=== PATIENT | female | born 1960 | race Caucasian/White ===

== ENCOUNTER 2020-10-17 08:04 | Outpatient (REF) | payer OTHER, SELFPAY ==
[2020-10-17 08:56] LABS: MANUAL DIFF FLAG NO
[2020-10-17 09:09] LABS: Basophils Percent Auto 0.6 % (0-2); Eosinophils Absolute Auto 0.2 X10*3/uL (0.0-0.4); Eosinophils Percent Auto 2.6 % (0-4); Hematocrit 43.5 % (37-47); Hemoglobin 14.1 g/dl (12.0-16.0); Imm Gran Abs Auto 0.03 X10*3/uL (0.00-0.03); Imm Gran Pct Auto 0.4 % (0.0-0.4); Lymphocytes Percent Auto 28.2 % (20-40); Mean Corpuscular HGB Conc 32.4 g/dl (31.0-35.0); Mean Corpuscular Hemoglobin 28.8 pg (27.0-33.0); Mean Corpuscular Volume 88.8 fL (80-98); Monocytes Absolute Auto 0.6 X10*3/uL (0.1-1.2); Monocytes Percent Auto 7.8 % (2-11); Neutrophils Absolute Auto 4.2 X10*3/uL (2.0-8.3); Neutrophils Percent Auto 60.4 % (45-73); Platelet Count 226 X10*3/uL (160-400); Red Cell Distribution Width 13.1 % (11.0-16.0)
[2020-10-17 09:24] LABS: Alanine Aminotransferase 20 U/L (0-31); Albumin Level 4.3 g/dL (3.5-5.0); Alkaline Phosphatase 99 U/L (39-117); Anion Gap 12 (12-20); Aspartate Amino Transferase 19 U/L (5-31); Bilirubin Total 0.6 mg/dL (0.0-1.0); Blood Urea Nitrogen 18 mg/dL (9-16); Calcium 8.8 mg/dL (8.4-10.2); Carbon Dioxide 28 mmol/L (22-29); Chloride 105 mmol/L (96-108); Cholesterol 221 mg/dL; Estimated Glomerular Filt Rate > 60; Glucose Random 92 mg/dL (60-115); HDL Cholesterol 42 mg/dL; LDL Cholesterol Calculated 152 mg/dl; Potassium 4.9 mmol/L (3.3-5.1); Sodium 140 mmol/L (135-145); Total Protein 7.1 g/dL (6.5-8.0); Triglycerides 135 mg/dL
[2020-10-17 09:48] LABS: Free T4 (Free Thyroxine) 0.95 ng/dL (0.71-1.85); Thyroid Stimulating Hormone 2.24 uIU/mL (0.32-4.0); Vitamin D 25-OH Total 37.9 ng/mL (>30)
[2020-10-17 10:04] LABS: Folate 5.5 ng/mL (> or = 4.0); Vitamin B12 694 pg/mL (200-900)
== END 2020-10-17 08:05 | disposition home or self-care (01) ==
LOC: HO.LAB 08:04
PROVIDERS: PCP Internal Medicine; Visit Provider Internal Medicine
DX: E78.00 Pure hypercholesterolemia, unspecified (principal)
CPT/HCPCS: 36415; 80053; 80061; 82306; 82607; 82746; 84439; 84443; 85025

== ENCOUNTER 2022-07-21 09:04 | Outpatient (REF) | payer OTHER, SELFPAY ==
--- NOTE | ~2022-07-21 | MM_ITS ---
EXAMINATION: MM SCREENING DIGITAL BREAST TOMOSYNTHESIS, BILATERAL CLINICAL INFORMATION: Screening. Asymptomatic. COMPARISON: Mammography: October 01, 2018 and studies dating back to December 06, 2012 TECHNIQUE: Digital breast tomosynthesis is performed in both the craniocaudal and mediolateral oblique views along with computer-aided detection (CAD). Synthesized 2D images are generated from the tomosynthesis. FINDINGS: There are scattered areas of fibroglandular density (ACR BI-RADS breast composition Category b). There are no significant masses, abnormal calcifications, or other abnormalities. MM/MM tomosynthesis screening BI IMPRESSION: No significant changes ASSESSMENT: BI-RADS 1: Negative RECOMMENDATION: Routine annual mammography screening. This patient's information was entered into a reminder system with a target due date for their next mammogram.
[2022-07-21 09:50] LABS: MANUAL DIFF FLAG NO
[2022-07-21 10:11] LABS: Basophils Percent Auto 0.5 % (0-2); Eosinophils Absolute Auto 0.1 X10*3/uL (0.0-0.4); Eosinophils Percent Auto 1.6 % (0-4); Hematocrit 44.4 % (37.0-47.0); Hemoglobin 14.5 g/dl (12.0-16.0); Imm Gran Abs Auto 0.03 X10*3/uL (0.00-0.03); Imm Gran Pct Auto 0.4 % (0.0-0.4); Mean Corpuscular HGB Conc 32.7 g/dl (31.0-35.0); Mean Corpuscular Hemoglobin 28.9 pg (27.0-33.0); Mean Corpuscular Volume 88.6 fL (80.0-98.0); Mean Platelet Volume 11.4 fL (9.4-12.3); Monocytes Absolute Auto 0.7 X10*3/uL (0.1-1.2); Monocytes Percent Auto 8.1 % (2-11); Neutrophils Absolute Auto 5.3 x10*3/uL (2.0-8.3); Neutrophils Percent Auto 64.4 % (45-73); Platelet Count 230 X10*3/uL (160-400); Red Blood Count 5.01 X10*6/uL (4.20-5.50); Red Cell Distribution Width 13.1 % (11.0-16.0); White Blood Count 8.2 X10*3/uL (4.8-10.8)
[2022-07-21 10:43] LABS: Alanine Aminotransferase 19 U/L (0-31); Albumin Level 4.6 g/dL (3.5-5.0); Alkaline Phosphatase 94 U/L (39-117); Anion Gap 17 (12-20); Aspartate Amino Transferase 18 U/L (5-31); Bilirubin Total 0.8 mg/dL (0.0-1.0); Blood Urea Nitrogen 22 mg/dL (9-16); Calcium 9.7 mg/dL (8.4-10.2); Carbon Dioxide 23 mmol/L (22-29); Chloride 106 mmol/L (96-108); Cholesterol 237 mg/dL; Estimated Glomerular Filt Rate > 60; Glucose Random 99 mg/dL (60-115); HDL Cholesterol 44 mg/dL; LDL Cholesterol Calculated 167 mg/dl; Potassium 4.8 mmol/L (3.3-5.1); Sodium 141 mmol/L (135-145); Total Protein 7.5 g/dL (6.5-8.0); Triglycerides 132 mg/dL
[2022-07-21 11:07] LABS: Free T4 (Free Thyroxine) 1.09 ng/dL (0.71-1.85); Thyroid Stimulating Hormone 1.96 uIU/mL (0.32-4.0)
[2022-07-21 11:21] LABS: Folate 6.8 ng/mL (> or = 4.0); Vitamin B12 619 pg/mL (200-900)
== END 2022-07-21 09:05 | disposition home or self-care (01) ==
LOC: HO.MAMMO 09:04
PROVIDERS: PCP Internal Medicine; Visit Provider Internal Medicine
DX: Z12.31 Encounter for screening mammogram for malignant neoplasm of breast (principal); E78.00 Pure hypercholesterolemia, unspecified
CPT/HCPCS: 36415; 77063; 77067; 80053; 80061; 82306; 82607; 82746; 84439; 84443; 85025

== ENCOUNTER 2022-10-31 13:41 | Outpatient (REF) | payer OTHER, SELFPAY ==
--- NOTE | ~2022-10-31 | CT_ITS ---
EXAMINATION: CT CHEST SCREENING CLINICAL INFORMATION: Z87.891 - Personal history of nicotine dependence. 37 pack years. Age 62. COMPARISON: MRI abdomen 12/24/2018, abdominal ultrasound 01/06/2018, report CT abdomen 06/07/2010. TECHNIQUE: Multidetector volumetric CT imaging of the chest is performed without contrast using low dose technique. Additional 2D coronal and sagittal reformatted images and axial 3D maximum intensity projection (MIP) images are generated on the CT workstation. This CT examination was performed using dose optimization techniques as appropriate, variously including the following: *Automated exposure control *Adjustment of mA and/or kV according to patient size (this includes techniques or standardized protocols for targeted exams where dose is matched to indication/reason for exam; i.e. extremities or head) *Use of iterative reconstruction technique DLP: 146 mGy-cm FINDINGS: LUNGS: Central airways are clear and there is no endobronchial lesion or bronchiectasis. No airspace consolidation or groundglass opacity or hyperinflation. No pulmonary mass. Incidental azygous fissure/lobe right medial apex representing normal developmental variant. There are a few tiny subpleural blebs at the bilateral apices. Small benign calcification anterior right upper lobe and posterior medial right lower lobe, both under 4 mm. Otherwise no pulmonary nodules. MEDIASTINUM: The mediastinum is normal. CORONARY ARTERY CALCIFICATION: None visualized on this study. PLEURA: There is no pleural effusion. No pleural mass or thickening. AXILLA: No lymphadenopathy. UPPER ABDOMEN: Nonobstructing medial left upper pole renal parenchymal calcification. OSSEOUS STRUCTURES: Unremarkable. CT/CT lung screening IMPRESSION: -2 small calcified granulomata on right under 4 mm. ASSESSMENT: Lung-RADS category 2: Benign RECOMMENDATION: Routine annual low-dose CT screening in 12 months.
== END 2022-10-31 13:42 | disposition home or self-care (01) ==
LOC: HO.CT 13:41
PROVIDERS: PCP Internal Medicine; Visit Provider Physician Assistant Medical
DX: Z12.2 Encounter for screening for malignant neoplasm of respiratory organs (principal); Z87.891 Personal history of nicotine dependence
CPT/HCPCS: 71271; G0296

== ENCOUNTER 2022-11-18 11:02 | Outpatient (REF) | payer OTHER, SELFPAY ==
[2022-11-18 12:32] LABS: Cholesterol 186 mg/dL; HDL Cholesterol 42 mg/dL; LDL Cholesterol Calculated 130 mg/dl; Triglycerides 73 mg/dL
== END 2022-11-18 11:03 | disposition home or self-care (01) ==
LOC: HO.LAB 11:02
PROVIDERS: PCP Internal Medicine; Visit Provider Internal Medicine
DX: E78.00 Pure hypercholesterolemia, unspecified (principal)
CPT/HCPCS: 36415; 80061

== ENCOUNTER 2023-08-25 10:03 | Outpatient (REF) | payer OTHER, SELFPAY ==
[2023-08-25 10:22] LABS: MANUAL DIFF FLAG NO
[2023-08-25 11:45] LABS: Basophils Percent Auto 0.5 % (0-2); Eosinophils Absolute Auto 0.1 X10*3/uL (0.0-0.4); Eosinophils Percent Auto 1.9 % (0-4); Hematocrit 45.5 % (37.0-47.0); Hemoglobin 14.5 g/dl (12.0-16.0); Imm Gran Abs Auto 0.01 X10*3/uL (0.00-0.03); Imm Gran Pct Auto 0.2 % (0.0-0.4); Lymphocytes Absolute Auto 1.6 X10*3/uL (1.2-4.9); Lymphocytes Percent Auto 26.1 % (20-40); Mean Corpuscular HGB Conc 31.9 g/dl (31.0-35.0); Mean Corpuscular Hemoglobin 28.8 pg (27.0-33.0); Mean Corpuscular Volume 90.3 fL (80.0-98.0); Mean Platelet Volume 12.9 fL (9.4-12.3); Monocytes Absolute Auto 0.5 X10*3/uL (0.1-1.2); Monocytes Percent Auto 8.1 % (2-11); Neutrophils Absolute Auto 3.8 x10*3/uL (2.0-8.3); Neutrophils Percent Auto 63.2 % (45-73); Platelet Count 181 X10*3/uL (160-400); Red Blood Count 5.04 X10*6/uL (4.20-5.50); Red Cell Distribution Width 12.7 % (11.0-16.0); White Blood Count 5.9 X10*3/uL (4.8-10.8)
[2023-08-25 12:19] LABS: Alanine Aminotransferase 16 U/L (0-31); Albumin Level 4.4 g/dL (3.5-5.0); Alkaline Phosphatase 100 U/L (39-117); Anion Gap 10 (12-20); Aspartate Amino Transferase 18 U/L (5-31); Bilirubin Total 0.6 mg/dL (0.0-1.0); Blood Urea Nitrogen 17 mg/dL (9-16); Carbon Dioxide 29 mmol/L (22-29); Chloride 107 mmol/L (96-108); Estimated Glomerular Filt Rate > 60; Glucose Random 89 mg/dL (60-115); Potassium 4.7 mmol/L (3.3-5.1); Sodium 141 mmol/L (135-145); Total Protein 7.4 g/dL (6.5-8.0)
[2023-08-25 12:39] LABS: Thyroid Stimulating Hormone 2.54 uIU/mL (0.32-4.0); Vitamin D 25-OH Total 47.9 ng/mL (>30)
[2023-08-25 12:45] LABS: Vitamin B12 596 pg/mL (200-900)
== END 2023-08-25 10:04 | disposition home or self-care (01) ==
LOC: HO.LAB 10:03
PROVIDERS: PCP Internal Medicine; Visit Provider Internal Medicine
DX: E78.00 Pure hypercholesterolemia, unspecified (principal)
CPT/HCPCS: 36415; 80053; 82306; 82607; 82746; 84439; 84443; 85025

== ENCOUNTER 2023-09-01 08:26 | Outpatient (AMB) | payer OTHER, SELFPAY ==
--- NOTE | 2023-09-01 08:39 | A.OFFPC_ITS ---
Vital Signs 09/01/23 08:40 09/01/23 09:07 Height 5 ft 5 in Weight 176 lb 4 oz BMI 29.3 BP 150/102 H 140/90 H Blood Pressure Location Rt brachial Lt brachial Position Sitting Sitting Pulse 73 Pulse Source Pulse Oximeter Pulse Oximetry (%) 97 Oxygen Delivery Method Room Air Intake Visit Reasons: PE Blacking Wheel Tender Required: No Accompanied by: Self / Same As Patient Allergies Penicillins [PENICILLINS] Allergy (Severe, Verified 09/01/23 08:48) SEVERE VOMITING latex [LATEX] Allergy (Intermediate, Verified 09/01/23 08:48) RASH oseltamivir [From TAMIFLU] Allergy (Intermediate, Verified 09/01/23 08:48) VOMITING dextromethorphan [Theraflu Day-Night Cold,Cough] Adverse Reaction (Unknown, Verified 09/01/23 08:48) nausea and vomiting diphenhydramine [Theraflu Day-Night Cold,Cough] Adverse Reaction (Unknown, Verified 09/01/23 08:48) nausea and vomiting phenylephrine [Theraflu Day-Night Cold,Cough] Adverse Reaction (Unknown, Verified 09/01/23 08:48) nausea and vomiting Medication List - Last Reconciled 09/01/23 by Paxton Lucio MD albuterol sulfate 90 mcg/actuation (Ventolin HFA) 2 puffs inhalation Q6H PRN betamethasone dipropionate 0.05% 1 appl topical BID 14 days omeprazole 20 mg PO DAILY Tobacco use date assessed: 11/25/22 Fall risk assessment: No Falls in past year Last assessed Fall Risk: 09/01/23 Dental Screening Dental Screen Date: 09/01/23 Did you have a dental visit in the last 12 months?: Yes Did you have a dental problem in the last 6 months where you did not have access to dental care?: No Was dental information given to patient?: Patient has dentist HPI PE HPI Details 63-year-old overweight female with GERD hypercholesterolemia asthma h istory of smoking coming in for physical exam last seen in November [address] scan of the chest October 2022. Colonoscopy is up-to-date January 2019 5 years mammogram is due.. tried to take out omeprazole but patient needs this. [facility] Medical History (Updated 09/01/23 @ 09:27 by Paxton Lucio MD) Personal history of nicotine dependence Pancreatic cyst Colitis Asthma Renal calculi GERD (gastroesophageal reflux disease) Allergic rhinitis Angiomyolipoma Peroneal neuropathy Hypercholesterolemia Surgical History History of endometrial ablation History of colonoscopy History of loop electrical excision procedure (LEEP) History of shoulder surgery Family History Father Myocardial infarction Mother No problems noted. Sister Heart problem Brother ALS (amyotrophic lateral sclerosis) Maternal Grandmother Ovarian cancer Paternal Grandfather Colon cancer CVD (cerebrovascular disease) Maternal Aunt Colon cancer Paternal Aunt Cervical cancer Social History (Updated 09/01/23 @ 09:12 by Paxton Lucio MD) Housing: House Alcohol intake: current Comment: 0nce -2x a year 1-2 drinks Patient Tobacco Use Status: Former Tobacco user Tobacco use type: Cigarette Years Smoked: (former smoker - onset 13yo, 1/2-1ppd x 43yrs, 30pyh, quit in 2015) e-Cigarette/Vaping Use: Never Used Second Hand Smoke Exposure: No Current occupational status: retired Cognitive needs: No Hearing needs: No Vision needs: Yes Questionnaire Thrive Questionnaire Date Thrive assessed: 11/25/22 MARANDA-7 AMB Questionnaire MARANDA-7 Date MARANDA - 7 assessed: 11/25/22 Source: Developed by Drs. Mehul Yen, Jaqueline Collins, Gilles Bowles and colleagues, with an educational twan from [employer]. Review of Systems Const Denies poor appetite and Denies weakness Eyes Denies no additional complaints ENT Reports Normal hearing present, Denies dizziness, Denies nasal congestion, Denies tinnitus and Denies sore throat Card Denies chest pain, Denies syncope, Denies rapid heart rate and Denies dyspnea Resp Denies cough and Denies dyspnea GI Denies change in stool character, Reports constipation, Denies diarrhea, Denies nausea and Denies vomiting Denies urinary frequency, Denies difficulty voiding and Denies dysuria Neuro Reports Normal hearing present, Denies confusion, Denies dizziness, Denies syncope and Denies weakness Psych Denies confusion Physical exam (Primary Care) Vital Signs: Last Vital Signs Pulse 73 09/01/23 08:40 BP 150/102 H 09/01/23 08:40 Pulse Ox 97 09/01/23 08:40 Oxygen Delivery Method Room Air 09/01/23 08:40 BMI result Body Mass Index 29.3 Tobacco/Smoking Status: Tobacco use Status Tobacco use date assessed 11/25/22 09/01/23 08:40 Patient Tobacco Use Status Former Tobacco user 09/01/23 08:40 Tobacco use type Cigarette 09/01/23 08:40 e-Cigarette/Vaping Use Never Used 09/01/23 08:40 Thrive Assessment: Date of Thrive Assessment Date Thrive assessed 11/25/22 09/01/23 08:40 Const General: No confusion Orientation/consciousness: No confusion HENMT Head: Yes normocephalic Ears: external ears normal and TM's normal bilaterally Face and sinus: Yes normal facial exam Mouth: moist mucous membranes Throat: Yes tonsils normal Eyes Conjunctivae: conjunctivae normal Pupils: Equal, round and reactive pupils present and Pupil accommodation reflex normal Direct Ophthalmoscopy: normal light reflex Neck Neck: No lymphadenopathy Thyroid: Thyroid normal Chest Chest palpation & inspection: normal inspection of the chest Resp Effort & Inspection: normal respiratory effort and no audible wheezes Auscultation: clear to auscultation bilaterally, no crackles, no wheezes and lung sounds not diminished Cardio Rate: regular rate Rhythm: regular rhythm Peripheral pulses: radial pulses present and dorsalis pedis present GI Palpation (GI): no masses Auscultation: normal bowel sounds and normoactive bowel sounds Rectal Exam - Female: deferred Skin General skin exam: no rashes or lesions noted Rashes: no rashes Neuro General: No confusion Cranial nerves: Yes Equal, round and reactive pupils present and Yes Normal hearing present Cognition (Neuro): normal cognition Gait exam (Neuro): Normal gait present Motor exam (neuro): 5/5 motor strength present throughout Deep tendon reflexes (DTR's): Right brachioradialis reflex intensity grade: 2+, Left brachioradialis reflex intensity grade: 2+, Right patellar reflex intensity grade: 2+ and Left patellar reflex intensity grade: 2+ Extrem General: No edema Assessment and Plan Assessment & Plan (1) Annual physical exam: Code(s): Z00.00 - Encounter for general adult medical examination without abnormal findin gs (2) Overweight (BMI 25.0-29.9): Code(s): E66.3 - Overweight Plan: Diet and exercise (3) Personal history of nicotine dependence: Comment: (former smoker - onset 13yo, 1/2-1ppd x 43yrs, 30pyh, quit in 2016) CT scan October 2022 Code(s): Z87.891 - Personal history of nicotine dependence Plan: October CT scan (4) Asthma: Code(s): J45.909 - Unspecified asthma, uncomplicated Qualifiers: Asthma severity: mild Asthma persistence: intermittent Asthma complication type: uncomplicated Qualified Code(s): J45.20 - Mild intermittent asthma, uncomplicated Plan: Continue with inhaler albuterol as needed (5) GERD (gastroesophageal reflux disease): Code(s): K21.9 - Gastro-esophageal reflux disease without esophagitis Qualifiers: Esophagitis presence: without esophagitis Qualified Code(s): K21.9 - Gastro-esophageal reflux disease without esophagitis Plan: Avoid the foods that causes that usually spicy foods, tomato products, juices, coffee, soda and foods that your sensitive to. After eating do not lie down, allow 3-4 hours before in lie down. And keep the head of bed above 30 degrees to avoid the acid from going up. (6) Hypercholesterolemia: Code(s): E78.00 - Pure hypercholesterolemia, unspecified Plan: Avoid fried foods, chicken skin, eggs, butter margarine, pastries and meat. Be it pork or beef they have a lot of cholesterol (7) Blood pressure elevated without history of HTN: Code(s): R03.0 - Elevated blood-pressure reading, without diagnosis of hypertension Plan: monitor the BP and record (8) Breast cancer screening by mammogram: Code(s): Z12.31 - Encounter for screening mammogram for malignant neoplasm of breast Plan: reminded (9) Pancreatic cyst: Comment: CT scan in 2019 Code(s): K86.2 - Cyst of pancreas Plan: MRI requested Orders: Orders Lipid Panel Today E78.00 - Pure hypercholesterolemia, unspecified Blood Urea Nitrogen Today K86.2 - Cyst of pancreas Creatinine Today K86.2 - Cyst of pancreas MR abdomen wo/w con Today K86.2 - Cyst of pancreas Coding Level of Care Code Est Pt Prev Care 40-64y(35543) Diagnoses Annual physical exam Z00.00 Overweight (BMI 25.0-29.9) E66.3 Personal history of nicotine dependence Z87.891 Mild intermittent asthma without complication J45.20 Asthma severity: mild Asthma persistence: intermittent Asthma complication type: uncomplicated Gastroesophageal reflux disease without esophagitis K21.9 Esophagitis presence: without esophagitis Hypercholesterolemia E78.00 Blood pressure elevated without history of HTN R03.0 Breast cancer screening by mammogram Z12.31 Pancreatic cyst K86.2
[2023-09-01 08:40] VITALS: BP 150/102; PULSE 73; O2SAT 97; BMI 29.3
[2023-09-01 09:07] VITALS: BP 140/90
== END 2023-09-01 09:35 | disposition home or self-care (01) ==
PROVIDERS: Visit Provider Internal Medicine
DX: Z00.00 Encounter for general adult medical examination without abnormal findings (principal); E66.3 Overweight; Z87.891 Personal history of nicotine dependence; J45.20 Mild intermittent asthma, uncomplicated; K21.9 Gastro-esophageal reflux disease without esophagitis; E78.00 Pure hypercholesterolemia, unspecified; R03.0 Elevated blood-pressure reading, without diagnosis of hypertension; Z12.31 Encounter for screening mammogram for malignant neoplasm of breast; K86.2 Cyst of pancreas
CPT/HCPCS: 99396

== ENCOUNTER 2024-09-01 11:29 | Outpatient (REF) | payer MEDICARE, SELFPAY ==
[2024-09-01 11:57] LABS: MANUAL DIFF FLAG NO
[2024-09-01 13:07] LABS: Basophils Percent Auto 0.7 % (0-2); Eosinophils Percent Auto 2.3 % (0-4); Hematocrit 43.5 % (37.0-47.0); Hemoglobin 14.3 g/dl (12.0-16.0); Imm Gran Pct Auto 0.4 % (0.0-0.4); Lymphocytes Percent Auto 25.5 % (20-40); Mean Corpuscular HGB Conc 32.9 g/dl (31.0-35.0); Mean Corpuscular Hemoglobin 28.5 pg (27.0-33.0); Mean Corpuscular Volume 86.8 fL (80.0-98.0); Mean Platelet Volume 11.8 fL (9.4-12.3); Monocytes Percent Auto 8.5 % (2-11); Neutrophils Percent Auto 62.6 % (45-73); Platelet Count 192 X10*3/uL (160-400); Red Blood Count 5.01 X10*6/uL (4.20-5.50); Red Cell Distribution Width 13.2 % (11.0-16.0); White Blood Count 5.7 X10*3/uL (4.8-10.8)
[2024-09-01 13:08] LABS: Eosinophils Absolute Auto 0.1 X10*3/uL (0.0-0.4); Imm Gran Abs Auto 0.02 X10*3/uL (0.00-0.03); Lymphocytes Absolute Auto 1.5 X10*3/uL (1.2-4.9); Monocytes Absolute Auto 0.5 X10*3/uL (0.1-1.2); Neutrophils Absolute Auto 3.6 x10*3/uL (2.0-8.3)
[2024-09-01 13:46] LABS: Alanine Aminotransferase 27 U/L (0-31); Albumin Level 4.3 g/dL (3.5-5.0); Alkaline Phosphatase 81 U/L (39-117); Anion Gap 9 (12-20); Aspartate Amino Transferase 26 U/L (5-31); Bilirubin Total 0.7 mg/dL (0.0-1.0); Blood Urea Nitrogen 14 mg/dL (9-16); Calcium 9.4 mg/dL (8.4-10.2); Carbon Dioxide 29 mmol/L (22-29); Chloride 107 mmol/L (96-108); Cholesterol 207 mg/dL (<200); Estimated Glomerular Filt Rate > 60; Glucose Random 84 mg/dL (60-115); HDL Cholesterol 41 mg/dL (>40); LDL Cholesterol Calculated 146 mg/dL (<100); Potassium 4.3 mmol/L (3.3-5.1); Sodium 141 mmol/L (135-145); Total Protein 7.4 g/dL (6.5-8.0); Triglycerides 101 mg/dL (<150)
[2024-09-01 13:51] LABS: Thyroid Stimulating Hormone 2.29 uIU/mL (0.32-4.0); Vitamin D 25-OH Total 48.5 ng/mL (>30)
[2024-09-01 13:59] LABS: Appearance Urine Clear; Color Urine Yellow; Glucose Urine UA Negative (Negative); Leukocyte Esterase Urine Negative (Negative); Nitrite Urine Negative (Negative); Specific Gravity - Urine <= 1.005 (1.005-1.025); Urine Blood Negative (Negative); Urine Ketones Negative (Negative); Urine Protein Negative (Neg-Trace)
[2024-09-01 14:03] LABS: Folate 5.2 ng/mL (> or = 4.0); Vitamin B12 516 pg/mL (200-900)
== END 2024-09-01 11:30 | disposition home or self-care (01) ==
LOC: HO.LAB 11:29
PROVIDERS: PCP Internal Medicine; Visit Provider Internal Medicine
DX: E78.00 Pure hypercholesterolemia, unspecified (principal); R30.0 Dysuria
CPT/HCPCS: 36415; 80053; 80061; 81003; 82306; 82607; 82746; 84439; 84443; 85025

== ENCOUNTER 2024-09-05 08:55 | Outpatient (AMB) | payer MEDICARE, SELFPAY ==
[2024-09-05 08:56] VITALS: BP 142/88; PULSE 78; O2SAT 98; BMI 30.1
--- NOTE | 2024-09-05 08:56 | A.OFFPC_ITS ---
Vital Signs 09/05/24 08:56 09/05/24 09:12 Height 5 ft 5 in Weight 181 lb BMI 30.1 BP 142/88 H 126/80 Blood Pressure Location Lt brachial Lt brachial Position Sitting Sitting Pulse 78 Pulse Source Pulse Oximeter Pulse Oximetry (%) 98 Oxygen Delivery Method Room Air Intake Visit Reasons: Annual Exam Allergies Penicillins [PENICILLINS] Allergy (Severe, Verified 09/05/24 08:57) SEVERE VOMITING latex [LATEX] Allergy (Intermediate, Verified 09/05/24 08:57) RASH oseltamivir [From TAMIFLU] Allergy (Intermediate, Verified 09/05/24 08:57) VOMITING dextromethorphan [Theraflu Day-Night Cold,Cough] Adverse Reaction (Unknown, Verified 09/05/24 08:57) nausea and vomiting diphenhydramine [Theraflu Day-Night Cold,Cough] Adverse Reaction (Unknown, Verified 09/05/24 08:57) nausea and vomiting phenylephrine [Theraflu Day-Night Cold,Cough] Adverse Reaction (Unknown, Verified 09/05/24 08:57) nausea and vomiting Medication List - Last Reconciled 09/05/24 by Paxton Lucio MD albuterol sulfate 90 mcg/actuation (Ventolin HFA) 2 puffs inhalation Q6H PRN [aloe vera PO] betamethasone dipropionate 0.05% 1 appl topical BID 14 days cholecalciferol (vitamin D3) 25 mcg PO DAILY omeprazole 20 mg PO DAILY Saccharomyces boulardii (Daily Probiotic (S. boulardii)) 250 mg PO BID Tobacco use date assessed: 09/05/24 Fall risk assessment: No Falls in past year Last assessed Fall Risk: 09/05/24 Dental Screening Dental Screen Date: 09/05/24 Did you have a dental visit in the last 12 months?: Yes Did you have a dental problem in the last 6 months where you did not have access to dental care?: No Was dental information given to patient?: Patient has dentist HPI Annual Exam HPI Details The patient is a 64-year-old female presenting with ongoing skin issues, characterized by a persistent rash that has been unresolved for several years. Initially appearing on the chest and back, the rash is noted to also affect the arms and occasionally the scalp, with symptoms of itchiness and burning. Past interventions include a cream provided by a nurse practitioner thought to be a result of medication reaction, which provided no sustained relief. The patient indicates frustration with the management so far, expressing the need for a dermatology referral as current treatments have been ineffective. Additionally, the patient reports experiencing right hip pain, notably exacerbat ed by prolonged walking, and extends down the leg causing mobility issues. This has impacted her ability to engage in regular exercise routines. The pain has been present for an unspecified duration, with occasional involvement of the left hip. Previous attempts to mitigate the pain have not been specified. - Mammogram pending - Referral for colonoscopy - Bone density test requested - Blood pressure management discussed - Regular monitoring of cholesterol leve ls - Vaccinations up to date: Tetanus, Vela gles, RSV, Pneumonia, Flu - Drinks alcohol infrequently, one or tw o drinks on rare occasions. - No current use of tobacco or recreatio nal drugs. - Experienced lifestyle changes due to [facility]. - Deals with arthritic symptoms affectin g daily exercise. - Constitutional: Denies fever, nausea o r vomiting. - Respiratory: Denies shortness of breat h. - Cardiovascular: Denies chest pain. - Gastrointestinal: Reports occasional h eartburn well-managed with medication. - Genitourinary: Reports nocturia, voidi ng up to 4-5 times nightly. - Neurological: Denies dizziness, passin g out. - Musculoskeletal: Reports hip pain affe cting mobility. - Dermatological: Reports persistent alex h with itchiness and burning. - Labs: Normal complete blood count, nor mal kidney and liver function tests, normal vitamin B12, vitamin D, folic acid, and thyroid levels. - Imaging: No recent imaging; X-ray of t he right hip requested. [facility] Medical History (Updated 09/05/24 @ 09:29 by Paxton Lucio MD) Overweight (BMI 25.0-29.9) Personal history of nicotine dependence Pancreatic cyst Colitis Asthma Renal calculi GERD (gastroesophageal reflux disease) Allergic rhinitis Angiomyolipoma Peroneal neuropathy Hypercholesterolemia Surgical History History of endometrial ablation History of colonoscopy History of loop electrical excision procedure (LEEP) History of shoulder surgery Family History (Updated 09/05/24 @ 08:57 by Lynne Madrid [facility]) Father Myocardial infarction Mother No problems noted. Sister Heart problem Brother ALS (amyotrophic lateral sclerosis) Maternal Grandmother Ovarian cancer Paternal Grandfather Colon cancer CVD (cerebrovascular disease) Maternal Aunt Colon cancer Paternal Aunt Cervical cancer Social History (Updated 09/01/23 @ 09:12 by Paxton Lucio MD) Housing: House Alcohol intake: current Comment: 0nce -2x a year 1-2 drinks Patient Tobacco Use Status: Former Tobacco user Tobacco use type: Cigarette Years Smoked: (former smoker - onset 13yo, 1/2-1ppd x 43yrs, 30pyh, quit in 2016) e-Cigarette/Vaping Use: Never Used Second Hand Smoke Exposure: No Current occupational status: retired Cognitive needs: No Hearing needs: No Vision needs: Yes Questionnaire PHQ-9 Over the last 2 weeks, how often have you been bothered by any of the following problems? 1. Little interest or pleasure in doing things: not at all 2. Feeling down, depressed, or hopeless: not at all 3. Trouble falling or staying asleep, or sleeping too much: more than half the days 4. Feeling tired or having little energy: more than half the days 5. Poor appetite or overeating: not at all 6. Feeling bad about yourself - or that you are a failure or have let yourself or your family down: not at all 7. Trouble concentrating on things, such as reading the newspaper or watching television: not at all 8. Moving or speaking so slowly that other people could have noticed. Or the opposite - being so fidgety or restless that you have been moving around a lot more than usual: not at all 9. Thoughts that you would be better off or of hurting yourself in some way: not at all Total score: 4 Depression Screening Interpretation: Positive Depression Screening Done: Yes 88398 - PHQ-9 Billing: Yes Source: Developed by Drs. Mehul Yen, Jaqueline Collins, Gilles Bowles and colleagues, with an educational twan from [employer]. Thrive Questionnaire Date Thrive assessed: 09/05/24 I am a: Patient What is your living situation today?: I have a steady place to live Within the past 12 months, did the food you bought not last and you didn't have the money to get more?: Never true Within the past 12 months, did you worry whether your food would run out before you got money to buy more?: Never true Do you have trouble paying for medicines?: No Do you have trouble getting transportation to medical appointments?: No Do you have trouble paying your heating and electricity bill?: No Do you have trouble taking care of your child, family member or friend?: No Do you have trouble with day-to-day activities such as bathing, preparing meals, shopping, managing finances, etc.?: No Are you currently unemployed and looking for a job?: No Are you interested in more education?: No Please select the resources that you would like help with: None Currently or been in a relationship where the following occur: No concerns reported THRIVE Score: 0 AUDIT C Alcohol Use Questionnaire (AUDIT-C) 1. How often do you have a drink containing alcohol?: Monthly or less 2. How many drinks containing alcohol do you have on a typical day when you are drinking?: 1 or 2 3. How often do you have six or more drinks on one occasion?: Never Total Score: 1 MARANDA-7 AMB Questionnaire MARANDA-7 Date MARANDA - 7 assessed: 09/05/24 Feeling nervous, anxious, or on edge: 0 = Not at all Not being able to stop or control worryin = Not at all Worrying too much about different things: 0 = Not at all Trouble relaxin = Not at all Being so restless that it is hard to sit still: 0 = Not at all Becoming easily annoyed or irritable: 0 = Not at all Feeling afraid as if something awful might happen: 0 = Not at all Total MARANDA-7 score (0-4 normal; 5-9 mild; 10-14 moderate; 15-21 severe): 0 Source: Developed by Drs. Mehul Yen, Jaqueline Collins, Gilles Bowles and colleagues, with an educational twan from [employer]. Review of Systems Const Denies poor appetite and Denies weakness Eyes Denies no additional complaints ENT Reports Normal hearing present, Denies dizziness, Denies nasal congestion, Denies tinnitus and Denies sore throat Card Denies chest pain, Denies syncope, Denies rapid heart rate and Denies dyspnea Resp Denies cough and Denies dyspnea GI Denies change in stool character, Reports constipation, Denies diarrhea, Denies nausea and Denies vomiting Denies urinary frequency, Denies difficulty voiding and Denies dysuria Neuro Reports Normal hearing present, Denies confusion, Denies dizziness, Denies syncope and Denies weakness Psych Denies confusion Physical exam (Primary Care) Vital Signs: Oxygen Delivery Method Room Air 09/05/24 08:56 BMI result Body Mass Index 30.1 Tobacco/Smoking Status: Tobacco use Status Tobacco use date assessed 11/25/22 09/01/23 08:40 Patient Tobacco Use Status Former Tobacco user 09/01/23 09:12 Tobacco use type Cigarette 09/01/23 09:12 e-Cigarette/Vaping Use Never Used 09/01/23 09:12 Depression Screening Interpretation: Positive Thrive Assessment: Date of Thrive Assessment Date Thrive assessed 11/25/22 09/01/23 08:40 Currently or been in a relationship where the following occur: No concerns reported Const General: No confusion Orientation/consciousness: No confusion HENMT Head: Yes normocephalic Ears: external ears normal and TM's normal bilaterally Face and sinus: Yes normal facial exam Mouth: moist mucous membranes Throat: Yes tonsils normal Eyes Conjunctivae: conjunctivae normal Pupils: Equal, round and reactive pupils present and Pupil accommodation reflex normal Direct Ophthalmoscopy: normal light reflex Neck Neck: No lymphadenopathy Thyroid: Thyroid normal Chest Chest palpation & inspection: normal inspection of the chest Resp Effort & Inspection: normal respiratory effort and no audible wheezes Auscultation: clear to auscultation bilaterally, no crackles, no wheezes and lung sounds not diminished Cardio Rate: regular rate Rhythm: regular rhythm Peripheral pulses: radial pulses present and dorsalis pedis present GI Palpation (GI): no masses Auscultation: normal bowel sounds and normoactive bowel sounds Rectal Exam - Female: deferred Skin Other: Noted on the skin multiple 1 cm hematoma areas on the arm both sides no scaliness mild swelling Neuro General: No confusion Cranial nerves: Yes Equal, round and reactive pupils present and Yes Normal hearing present Cognition (Neuro): normal cognition Gait exam (Neuro): Normal gait present Motor exam (neuro): 5/5 motor strength present throughout Deep tendon reflexes (DTR's): Right brachioradialis reflex intensity grade: 2+, Left brachioradialis reflex intensity grade: 2+, Right patellar reflex intensity grade: 2+ and Left patellar reflex intensity grade: 2+ Extrem General: No edema Coding Level of Care Code Est Pt Prev Care >65y(07023) Diagnoses Annual physical exam Z00.00 Hypercholesterolemia E78.00 Mild intermittent asthma without complication J45.20 Asthma complication type: uncomplicated Asthma persistence: intermittent Asthma severity: mild Personal history of nicotine dependence Z87.891 Breast cancer screening by mammogram Z09.13 Osteopenia M85.80 Colon cancer screening Z12.11 Eczema L30.9 Obesity (BMI 30.0-34.9) E66.811 Right hip pain M25.551 Additional Codes PHQ-9 - 31490 - PHQ-9 Billing: Yes ([id number]) Assessment & Plan Assessment & Plan (1) Annual physical exam: Code(s): Z00.00 - Encounter for general adult medical examination without abnormal findings Category: Medical Plan: Patient is advised to eat healthy, keep well hydrated, keep active and have adequate sleep. (2) Hypercholesterolemia: Code(s): E78.00 - Pure hypercholesterolemia, unspecified Category: Medical Plan: Avoid fried foods, chicken skin, eggs, butter margarine, pastries and meat. Be it pork or beef they have a lot of cholesterol LDL goal of less than 130 and triglyceride of less than 150 (3) Asthma: Code(s): J45.909 - Unspecified asthma, uncomplicated Category: Medical Qualifiers: Asthma complication type: uncomplicated Asthma persistence: intermitte nt Asthma severity: mild Qualified Code(s): J45.20 - Mild intermittent asthma, uncomplicated Plan: Continue with albuterol inhaler (4) Personal history of nicotine dependence: Comment: (former smoker - onset 13yo, 1/2-1ppd x 42yrs, 30pyh, quit in 2016) Code(s): Z87.891 - Personal history of nicotine dependence Category: Medical Plan: Patient had a CT scan done 11/03/[address] another CT scan (5) Breast cancer screening by mammogram: Code(s): Z. - Encounter for screening mammogram for malignant neoplasm of breast Category: Medical Plan: Patient is reminded about mammogram (6) Osteopenia: Code(s): M85.80 - Other specified disorders of bone density and structure, unspecified site Category: Medical Plan: Patient is recommended to have a bone density (7) Colon cancer screening: Code(s): Z11 - Encounter for screening for malignant neoplasm of colon Category: Medical Plan: Patient is reminded about colonoscopy (8) Eczema: Code(s): L30.9 - Dermatitis, unspecified Category: Medical (9) Obesity (BMI 30.0-34.9): Code(s): E66.811 - Obesity, class 1 Category: Medical (10) Right hip pain: Code(s): M25.551 - Pain in right hip Category: Medical Plan - Proceed with dermatology referral for rash management. - Order X-ray to evaluate right hip pain. - Make referral for colonoscopy and request bone density test. - Monitor blood pressure and discuss lifestyle modifications. - Lifestyle modifications suggested to address cholesterol, focus on diet and potential need for lipid-lowering therapy. - Encourage weight management strategies, exercise, and dietary changes. During the visit, I discussed the importance of managing her rash through a dermatology referral, given her unsatisfactory response to previous treatments. For the hip pain, I have requested an X-ray to assess any underlying issues. We also discussed that her blood pressure needs ongoing monitoring, with a recommendation to keep it below 130/80 mmHg. In reference to her cholesterol, dietary restrictions emphasizing plant-based proteins were recommended, emphasizing risks of cardiovascular disease without change. Finally, various health maintenance screenings were outlined, including upcoming mammograms and colonoscopies. I reiterated the importance of hydration and sleep hygiene, particularly to reduce nighttime urinary frequency. - Follow up with dermatology for persistent rash management. - Schedule X-ray for hip evaluation as instructed. - Monitor blood pressure at home, keeping a log for follow-up. - Follow dietary recommendations to manage cholesterol and maintain weight. - Limit evening fluid intake to reduce nocturia. - Attend scheduled health maintenance screenings and follow up as discussed. - Seek immediate care if symptoms worsen or new symptoms arise. Orders: Orders XR DEXA axial skeleton Today M81.0 - Age-related osteoporosis without current pathological fracture, M85.80 - Other specified disorders of bone density and structure, unspecified site XR hip RT min 2V Today M25.551 - Pain in right hip MM tomosynthesis screening BI Today Z12.31 - Encounter for screening mammogram for malignant neoplasm of breast Referrals Lung Cancer Screening Referral Z87.891 - Personal history of nicotine dependence Gastroenterology Referral Z12.11 - Encounter for screening for malignant neoplasm of colon Dermatology Referral L30.9 - Dermatitis, unspecified
[2024-09-05 09:12] VITALS: BP 126/80
== END 2024-09-05 09:33 | disposition home or self-care (01) ==
PROVIDERS: PCP Internal Medicine; Visit Provider Internal Medicine
DX: Z00.00 Encounter for general adult medical examination without abnormal findings (principal); M25.551 Pain in right hip; E78.00 Pure hypercholesterolemia, unspecified; J45.20 Mild intermittent asthma, uncomplicated; Z87.891 Personal history of nicotine dependence; Z12.31 Encounter for screening mammogram for malignant neoplasm of breast; M85.80 Other specified disorders of bone density and structure, unspecified site; Z12.11 Encounter for screening for malignant neoplasm of colon; L30.9 Dermatitis, unspecified; E66.811 Obesity, class 1

== ENCOUNTER 2024-09-05 08:55 | Outpatient (REF) | payer MEDICARE, SELFPAY | END 2024-09-05 08:56 | disposition home or self-care (01) | LOC: HO.MAMMO 08:55 | PROVIDERS: PCP Internal Medicine; Visit Provider Internal Medicine | DX: Z13.89 Encounter for screening for other disorder (principal) | CPT/HCPCS: 96127; 99397 ==

== ENCOUNTER 2024-09-05 09:49 | Outpatient (REF) | payer MEDICARE, SELFPAY ==
--- NOTE | ~2024-09-05 | MM_ITS ---
EXAMINATION: MM SCREENING DIGITAL BREAST TOMOSYNTHESIS, BILATERAL CLINICAL INFORMATION: Screening. Asymptomatic. COMPARISON: Mammography: Comparison is made with available priors TECHNIQUE: Digital breast mammography with tomosynthesis is performed in both the craniocaudal and mediolateral oblique views along with computer-aided detection (CAD). FINDINGS: There are scattered areas of fibroglandular density (ACR BI-RADS breast composition Category b). There are no significant masses, abnormal calcifications, or other abnormalities. MM/MM tomosynthesis screening BI IMPRESSION: No mammographic evidence of malignancy. ASSESSMENT: BI-RADS BI-RADS 1 - Negative RECOMMENDATION: Routine annual mammography screening. 1 year F/U This examination should not preclude the clinical evaluation of a suspicious palpable abnormality. This patient's information was entered into a reminder system with a target due date for their next mammogram. Electronically signed by: Alexandra Hussein DO 09/16/2024 05:09 PM [facility]
== END 2024-09-05 09:50 | disposition home or self-care (01) ==
LOC: HO.XRAY 09:49
PROVIDERS: PCP Internal Medicine; Visit Provider Internal Medicine
DX: Z12.31 Encounter for screening mammogram for malignant neoplasm of breast (principal); Z00.01 Encounter for general adult medical examination with abnormal findings; M25.551 Pain in right hip; E78.00 Pure hypercholesterolemia, unspecified; J45.20 Mild intermittent asthma, uncomplicated; M85.80 Other specified disorders of bone density and structure, unspecified site; L30.9 Dermatitis, unspecified; E66.811 Obesity, class 1; Z87.891 Personal history of nicotine dependence
CPT/HCPCS: 73502; 77063; 77067; 96127; 99397

== ENCOUNTER → 2024-09-05 11:30 | Outpatient (BNV) | payer MEDICARE, SELFPAY | PROVIDERS: PCP Internal Medicine; Visit Provider Internal Medicine | DX: Z12.31 Encounter for screening mammogram for malignant neoplasm of breast (principal) | CPT/HCPCS: 77063; 77067 ==

== ENCOUNTER 2024-10-13 08:51 | Outpatient (REF) | payer MEDICARE, SELFPAY ==
--- NOTE | ~2024-10-13 | MM_ITS ---
EXAMINATION: DXA BONE DENSITY AXIAL HISTORY: Estrogen deficiency TECHNIQUE: [employer] Dual energy absorptiometry (DEXA) of the lumbar spine, total left hip, and femoral neck was performed. COMPARISON: Comparison is made with the prior examination dated 10/01/2018. FINDINGS: The bone mineral density of the lumbar spine is 0.973 with a T-score of -1.7, and a Z-score of -0.7. This represents a BMD change of 4.2% compared to the prior exam. This is not statistically significant. The bone mineral density of the left total hip is 0.945 with a T-score of -0.5, and a Z-score of 0.3. This represents BMD change of 6.9% compared to the prior exam. This is statistically significant. The bone mineral density of the left femoral neck is 0.923 with a T-score of -0.8, and a Z-score of 0.3. This represents BMD change of 5.4% compared to the prior exam. FRACTURE RISK: The FRAX index suggests a ten year probability of major osteoporotic fracture of 12.5%, and of hip fracture 0.8%. MM/XR DEXA axial skeleton IMPRESSION: Based on bone mineral density, and according to World Health Organization (WHO) criteria, the diagnosis is consistent with osteopenia. All bone density values are in grams per centimeter squared (g/cm2). Statistically, 68% of repeat scans fall within 1 SD (+/- 0.010 g/cm2 for AP spine L1-L4) and 1 SD (+/- 0.012 g/cm2 for femur total) FRAX is a trademark of the [employer] [place] [facility] Metabolic Bone Disease, a World Health Organization (WHO) Collaborating Center. Electronically signed by: Mehul Santiago MD 10/17/2024 12:08 PM [facility]
--- OUTSIDE RECORDS SUMMARY | 2024-10-13 11:41 | XMS_ITS | Patient Health Record ---
Author Organization [facility] Address [address] [place] [address] Care Team Providers Care Business Analyst Project Manager Name Role Phone Paxton Lucio MD Primary Care Provider Anitha Rasheed Unavailable [phone] ALLERGIES Allergen (clinical drug ingredient) Drug/Non Drug Allergy documented on EMR Reaction Allergy Type Onset Date Status Theraflu Cold & Cough Unknown Drug Allergy Active penicillin G Penicillin G Sodium Unknown Drug Allergy Active Latex latex gloves (uncoded) Unknown Allergy Active REASON FOR REFERRAL No Information MEDICATIONS Medication SIG (Take, Route, Fr equency, Duration) Notes Start Date End Date Status Vitamin D 1000 UNIT 1 tablet Orally Once a day for 30 day(s) Active Tylenol 325 MG 1 tablet as needed O rally every 4 hrs Active IMMUNIZATIONS Vaccine Route Administration Date Status Comme nts Influenza Unknown 06/14/2018 Administered SOCIAL HISTORY Tobacco Use: Social History Observation Description Date Details (start date - stop date) Former Smoker NA - NA Sex Assigned At : Social History Observation Description Sex Assigned At Unknown Tobacco Use/Smoking Question Answer Notes Patient is a former smoker When did you stop smoking? december 20, 2017 How long has it been since you last smoked? 6-12 months Alcohol Screen Question Answer Notes Did you have a drink containing alcohol in the p ast year? No Points 0 Interpretation Negative PROBLEMS Problem Type ICD Code Onset Dates Problem Status W/U Status Risk SNOMED Code Notes Problem Rectal bleed (K62.5) Active confirmed 47218066 Problem Family history of colon cancer (Z80.0) Active confirmed 400337997 Problem Encounter for screening for malignant neoplasm of colon (Z12.11) Active confirmed 222742384 Problem Constipation, unspecified constipation type (K59.00) Active confirmed 60115520 PLAN OF TREATMENT Future Test Test Name Order Date COLONOSCOPY 11/30/2018 Next Appt Details Provider Name:Anitha Crockett , 12/28/2024 02:20:00 PM, [address], [address], [place], [address], Insurance Providers Payer Name Payer Address Payer Phone Subscriber Number Group Number Insured Name Patient Relationship to Insured Coverage Start Date Coverage End Date MEDICARE OF [place] [address] [place] [address] [id number] FRAN POWELL Self - patient is the insured MED[employer] ATTN CLAIMS [address] [place] [address] [id number] FRAN POWELL Self - patient is the insured MEDICAL (GENERAL) HISTORY Medical History History ICD Code Kidney stones Denies DE,DM,CVA,Lung disease,renal dise ase Asthma - mild intermittent--inhaler prn Colonoscopy in 05/2010----vinnie anosis coli, hyperplastic polyp, and internal hemorrhoids Surgical History Surgery Date(Month/Year) Novasure Uterine ablation-
== END 2024-10-13 08:52 | disposition home or self-care (01) ==
LOC: HO.MAMMO 08:51
PROVIDERS: PCP Internal Medicine; Visit Provider Internal Medicine
DX: M81.0 Age-related osteoporosis without current pathological fracture (principal); M85.80 Other specified disorders of bone density and structure, unspecified site
CPT/HCPCS: 77080

== ENCOUNTER → 2024-10-13 09:15 | Outpatient (BNV) | payer MEDICARE, SELFPAY | PROVIDERS: PCP Internal Medicine; Visit Provider Radiology Diagnostic Radiology | DX: E28.39 Other primary ovarian failure (principal) | CPT/HCPCS: 77080 ==

== ENCOUNTER 2024-12-06 09:35 | Outpatient (REF) | payer MEDICARE, SELFPAY ==
--- NOTE | ~2024-12-06 | CT_ITS ---
EXAMINATION: CT LUNG SCREENING HISTORY: Smoking history TECHNIQUE: Low dose axial images were obtained from the sternal notch to upper abdomen without IV contrast per standard departmental protocol. Sagittal and coronal reformatted images were also obtained and reviewed. One or more of the following techniques was used for dose reduction: Automated exposure control, adjustment of the mA and/or kV according to patient size, use of iterative reconstruction technique. DLP: 46 mGy-cm COMPARISON: Comparison is made with the prior examination dated 10/31/2022. FINDINGS: Lung nodules: There is a tiny 2-3 mm nodule at the right lung apex (series 4, image 12). Emphysema: none Coronary Calcification: none Aortic Arch Calcification: none Potentially Significant Incidentals : none Additional Chest Findings: There is no pleural or pericardial effusion. No mediastinal or axillary lymphadenopathy is identified. Visualized upper abdomen: The visualized portions of the liver, spleen, and adrenals have an unremarkable unenhanced appearance. CT/CT lung screening IMPRESSION: No suspicious pulmonary nodules are identified. LUNG-RADS ASSESSMENT: Lung-RADS 2: Benign MANAGEMENT: Continue annual screening with LDCT in 12 months Category S: N/A Electronically signed by: Mehul Santiago MD 12/06/2024 11:35 AM EDT
--- OUTSIDE RECORDS SUMMARY | 2024-12-06 10:51 | XMS_ITS | Patient Health Record ---
Author Organization [facility] Address [address] [place] [address] Care Team Providers Care Recycle Driver Name Role Phone Paxton Lucio MD Primary Care Provider Anitha Rasheed Unavailable [phone] Allergies Allergen (clinical drug ingredient) Drug/Non Drug Allergy documented on EMR Reaction Allergy Type Onset Date Status Theraflu Cold & Cough Unknown Drug Allergy Active penicillin G Penicillin G Sodium Unknown Drug Allergy Active latex gloves (uncoded) Unknown Allergy Active Reason For Referral No Information Medications Medication SIG (Take, Route, Fr equency, Duration) Notes Start Date End Date Status Vitamin D 1000 UNIT 1 tablet Orally Once a day for 30 day(s) Active Tylenol 325 MG 1 tablet as needed O rally every 4 hrs Active Immunizations Vaccine Route Administration Date Status Comme nts Influenza Unknown 06/14/2018 Administered Social History Tobacco Use: Social History Observation Description Date Details (start date - stop date) Former Smoker NA - NA Tobacco Use/Smoking Question Answer Notes Patient is a former smoker When did you stop smoking? december 20, 2017 How long has it been since you last smoked? 6-12 months Alcohol Screen Question Answer Notes Did you have a drink containing alcohol in the p ast year? No Points 0 Interpretation Negative Section Notes: Nonsmoker since 12/2017; no s ig alcohol Problems Problem Type SNOMED Code ICD Code Onset Dates Problem Status W/U Status Risk Notes Problem 662484599 Encounter for screening for malignant neoplasm of colon (Z12.11) Active confirmed Problem 601401373 Family history o f colon cancer (Z80.0) Active confirmed Problem 08913544 Rectal bleed (K62.5) Active confirmed Problem 43845825 Constipation, unspecified constipation type (K59.00) Active confirmed Plan Of Treatment Future Test Test Name Order Date COLONOSCOPY 11/30/2018 Next Appt Details Provider Name:Anitha Crockett , 12/28/2024 02:20:00 PM, [address] [place] [address], [address], [place], [address], Insurance Providers Payer Name Payer Address Payer Phone Subscriber Number Group Number Insured Name Patient Relationship to Insured Coverage Start Date Coverage End Date MEDICARE OF [place] [address] [place] [address] [phone] [id number] FRAN POWELL Self - patient is the insured MED[employer] ATTN CLAIMS [address] [place] [address] [phone] [id number] FRAN POWELL Self - patient is the insured Medical (General) History Medical History History ICD Code Kidney stones Denies [place],DM,CVA,Lung disease,renal dise ase Asthma - mild intermittent--inhaler prn Colonoscopy in 05/2010----vinnie anosis coli, hyperplastic polyp, and internal hemorrhoids Surgical History Surgery Date(Month/Year) Novasure Uterine ablation-
== END 2024-12-06 09:36 | disposition home or self-care (01) ==
LOC: HO.CT 09:35
PROVIDERS: PCP Internal Medicine; Visit Provider Physician Assistant Medical
DX: Z12.2 Encounter for screening for malignant neoplasm of respiratory organs (principal); Z87.891 Personal history of nicotine dependence
CPT/HCPCS: 71271

== ENCOUNTER → 2024-12-06 09:37 | Outpatient (BNV) | payer MEDICARE, SELFPAY | PROVIDERS: PCP Internal Medicine; Visit Provider Radiology Diagnostic Radiology | DX: Z87.891 Personal history of nicotine dependence (principal) | CPT/HCPCS: 71271 ==

== ENCOUNTER 2025-03-09 10:58 | Outpatient (REF) | payer MEDICARE, SELFPAY ==
--- OUTSIDE RECORDS SUMMARY | 2024-12-28 10:20 | XMS_ITS ---
Author Organization [facility] Address [address] [place] [address] Care Team Providers Care Manager Hair Name Role Phone Paxton Lucio MD Primary Care Provider Anitha Rasheed Unavailable [phone] Allergies Allergen (clinical drug ingredient) Drug/Non Drug Allergy documented on EMR Reaction Allergy Type Onset Date Status Theraflu Cold & Cough Unknown Drug Allergy Active penicillin G Penicillin G Sodium Unknown Drug Allergy Active latex gloves (uncoded) Unknown Allergy Active REASON FOR VISIT Patient presents today for a COLON SCREENING Medications Medication SIG (Take, Route, Frequency, Duration) Notes Start Date End Date Status Vitamin D 1000 UNIT 1 tablet Orally Once a day for 30 day(s) Active Tylenol 325 MG 1 tablet as needed O rally every 4 hrs Active Probiotic 1-250 BILLION-MG as directed Orally Active Aloe Vera Juice - as directed Orally Active Omeprazole 20 MG TAKE 1 CAPSULE BY [facility] EVERY DAY Oral for 90 Days Activ e Social History Tobacco Use: Social History Observation [...] Problem Status W/U Status Risk Notes Problem GERD (gastroesopha geal reflux disease) (K21.9) Active confirmed Vital Signs Temperature 97.8 degrees Fahrenheit 12/29/19 25 Blood pressure systolic 001 mm Hg 12/29/19 25 Blood pressure diastolic 01 mm Hg 025 Height 65 in 12/28/2024 Weight 181.2 lbs 12/28/2024 BMI 30.15 kg/m2 12/28/2024 Procedures Procedure Date Ordered Date Performed Result Body Sit e UPPER GI ENDOSCOPY 12/28/2024 N/A COLONOSCOPY 12/28/2024 N/A Encounters Encounter Location Date Provider Diagnosis [facility] [address] [place] [phone] 12/28/2024 Anitha Crockett Family history of colon cancer Z80.0 ; Encounter for screening for malignant neoplasm of colon Z12.11 ; Constipation, unspecified constipation type K59.00 and GERD (gastroesophageal reflux disease) K21.9 Assessments Encounter Date Diagnosis (ICD Code) Assessment Notes Treatment Notes Treatment Clinical Notes Section Notes 12/28/2024 Family history of colon cancer (ICD-10 - Z80.0) 12/28/2024 Encounter for screening for malignant neoplasm of colon (ICD-10 - Z12.11) 12/28/2024 Constipation, unspecified constipation type (ICD-10 - K59.00) 12/28/2024 GERD (gastroesophageal reflux disease) (ICD-10 - K21.9) Plan Of Treatment Pending Test Test Name Order Date UPPER GI ENDOSCOPY 12/28/2024 COLONOSCOPY 12/28/2024 Next Appt Details Provider Name:Anitha Crockett , 03/22/2025 08:30:00 AM, [address] [place] [address], [phone], Progress Notes * FRAN POWELLDOB:1959 (65 yo F)Acc No.[id number]:12/28/2024 Progress Notes Patient: FRAN LANDEROS Provider: Lori Crockett MD :1960 A ge:64 Y S ex:Female Date:12/28/2024 Address:[address] [place], [place] [id number] Pcp:Paxton Lucio MD Subjective: * Chief Complaints: * 1 . Patient presents today for a COLON SCREENING. * Medical History: K idney stones, Denies [place],DM,CVA,renal disease, Asthma - mild intermittent--inhaler prn, Colonoscopy in 05/2010- - melanosis coli, hyperplastic polyp, and internal hemorrhoids, GERD. * Surgical History: N ovasure Uterine ablation- . * Family History: F ather: 91 yrs. M other: alive 90 yrs. M lor Grand Father: Age 70, diagnosed with Colon cancer. M atetim aunt: In her 70's, diagnosed with Colon cancer. M atetim uncle: diagnosed with Colon cancer. * Social History: T obacco Use: T obacco Use/Smoking P atient is a f ormer smoker, W hen did you stop smoking??december 20, 2017, H ow long has it been since you last smoked? 6 -12 months. D rugs/Alcohol: A lcohol Screen D id you have a drink containing alcohol in the past year? N o, P oints 0 , I nterpretation N egative. M iscellaneous: M arital status: . Occupation: [employer]/retired. N onsmoker since 12/2017; no sig alcohol. * Medications: T aking Probiotic 1-250 BILLION-MG Capsule as directed Orally , Taking Aloe Vera Juice - Liquid as directed Orally , Taking Vitamin D 1000 UNIT Tablet 1 tablet Orally Once a day , Taking Tylenol 325 MG Tablet 1 tablet as needed Orally every 4 hrs , Taking Omeprazole 20 MG Capsule Delayed Release TAKE 1 CAPSULE BY MOUTH EVERY DAY Oral * Allergies: P enicillin G Sodium, Theraflu Cold & Cough, latex gloves. Objective: * Vitals: W t: 181.2 lbs, Ht: 65 in, BMI: 30.15 Index, BP: 001/01 mm Hg, Temp: 97.8, Wt-k.19. Assessment: * Assessment: 1. F amily history of colon cancer - Z80.0 (Primary) 2 . E ncounter for screening for malignant neoplasm of colon - Z12.11 3 . C onstipation, unspecified constipation type - K59.00 4 . G ERD (gastroesophageal reflux disease) - K21.9? Plan: * Treatment: 2.?Encounter for screening for malignant neoplasm of colon?Procedure: COLONOSCOPY* with MAC. With a 2 day preps ched 03/22/25 at 8:30 ammiralax 3.?GERD (gastroesophageal reflux disease)?Procedure: UPPER GI ENDOSCOPY* sched for 03/22/25 at 8:30 amm ac * Procedure Codes: 4 5378 DIAGNOSTIC COLONOSCOPY, 19211 UPPR GI ENDOSCOPY, DIAGNOSIS * Preventive Medicine: Counseling: C are goal follow-up plan: A becky Normal BMI Follow-up D ietary management education, guidance, and counseling, B [place] management provided Y es. Urinary Incontinence: U rinary Incontinence A ssessment: A bsent, P demario of care documented: N o, reason not specified. Screenings: F all Risk Screening F all Risk Assessment: N o falls in the past year, S creening: N o falls in the past year, A ssessment: N ot performed, no reason specified, P demario of Care: N ot documented, no reason specified. * * The named appointment provid er may or may not be the originator of this progress note, and it is not deemed complete until electronically signed by the appointment provider. Sign off status: Pending * Provider: Lori Crockett MD Date: 0 12/28/2024 Generated for Ingris fountain/Julius/Ameliaitting on: 0 03/09/2025 01:07 PM EDT
[2025-03-09 12:29] LABS: ~Hepatitis C Antibody Nonreactive (Nonreactive)
== END 2025-03-09 10:59 | disposition home or self-care (01) ==
LOC: HO.LAB 10:58
PROVIDERS: PCP Internal Medicine; Visit Provider Nurse Practitioner Family
DX: L43.8 Other lichen planus (principal); L29.89 Other pruritus; Z11.9 Encounter for screening for infectious and parasitic diseases, unspecified
CPT/HCPCS: 36415; 86803

== ENCOUNTER 2025-03-22 07:17 | Day surgery (SDC) | payer MEDICARE, SELFPAY ==
--- OUTSIDE RECORDS SUMMARY | 2025-02-20 13:25 | XMS_ITS ---
Author Organization [facility] Address [address] [place] [address] Care Team Providers Care Medical Technologist Clinical Name Role Phone Po Paxton BROWN Primary Care Provider Anitha Rasheed [phone] REASON FOR VISIT please verify insurance Encounters Encounter Location Date Provider Diagnosis [facility] [address] [place] [phone] 12/08/2024 Anitha Crockett Plan Of Treatment Next Appt Details Provider Name:Anitha Crockett , 03/22/2025 08:30:00 AM, [address] [place] [address], [phone], Progress Notes * FRAN POWELLDOB:1959 (64 yo F)Acc No.[id number]:12/08/2024 Patient:?FRAN POWELL :1960???Age:64 Y???Sex:Female Address:[address] [place] [address] * true * Date:? Generated for Printi essie/Julius/eTransmitting on:?02/20/2025 01:24 PM EDT
[2025-03-20 11:57] VITALS: BMI 30.1
--- NOTE | 2025-03-21 13:11 | HO.ANESPROP2 ---
Documented by User: Little Reece NP 03/21/25 13:12 HPI - Anesthesia Eval Consult details Narrative: 65yo F for Upper Endoscopy and Colonoscopy PMFSH Active Problems Active Problems: All Active Problems Right hip pain (Acute) Obesity (BMI 30.0-34.9) (Acute) Eczema (Acute) Colon cancer screening (Acute) Osteopenia (Acute) Breast cancer screening by mammogram (Acute) Blood pressure elevated without history of HTN (Acute) Pancreatic cyst (Acute) Personal history of nicotine dependence (Acute) Asthma (Acute) GERD (gastroesophageal reflux disease) (Acute) Hypercholesterolemia (Acute) Past Medical History Medical History Overweight (BMI 25.0-29.9) Personal history of nicotine dependence Pancreatic cyst Colitis Asthma Renal calculi GERD (gastroesophageal reflux disease) Allergic rhinitis Angiomyolipoma Peroneal neuropathy Hypercholesterolemia Family History Family History Father Myocardial infarction Mother No problems noted. Sister Heart problem Brother ALS (amyotrophic lateral sclerosis) Maternal Grandmother Ovarian cancer Paternal Grandfather Colon cancer CVD (cerebrovascular disease) Maternal Aunt Colon cancer Paternal Aunt Cervical cancer Surgical History Surgical History History of endometrial ablation History of colonoscopy History of loop electrical excision procedure (LEEP) History of shoulder surgery Social History Social History Housing: House Are you a primary childcare provider to a significant other at home: No Do you presently have visiting nurse or other home services: No Alcohol intake: current Alcohol intake frequency: holidays/special occasions only Comment: 0nce -2x a year 1-2 drinks Patient Tobacco Use Status: Former Tobacco user Tobacco use type: Cigarette Years Smoked: (former smoker - onset 13yo, 1/2-1ppd x 43yrs, 30pyh, quit in 2016) e-Cigarette/Vaping Use: Never Used Second Hand Smoke Exposure: No Use of substances other than those prescribed or required for medical reasons: No Have you been hit, kicked, punched, or otherwise hurt by someone within the past year? If so, by whom?: No Are you DNR?: No Advance Directives: No Advance Directives Information Provided: Yes Advance Directives on File: No Patient : No Current occupational status: retired Cognitive needs: No Hearing needs: No Vision needs: Yes Meds Allergies Allergy/AdvReac Type Severity Reaction Status Date / Time Penicillins (PENICILLINS) Allergy Severe SEVERE Verified 09/05/24 08:57 VOMITING latex (LATEX) Allergy Intermediate RASH Verified 09/05/24 08:57 oseltamivir (From TAMIFLU) Allergy Intermediate VOMITING Verified 09/05/24 08:57 dextromethorphan (Theraflu AdvReac Unknown nausea and Verified 09/05/24 08:57 Day-Night Cold,Cough) vomiting diphenhydramine (Theraflu AdvReac Unknown nausea and Verified 09/05/24 08:57 Day-Night Cold,Cough) vomiting phenylephrine (Theraflu AdvReac Unknown nausea and Verified 09/05/24 08:57 Day-Night Cold,Cough) vomiting Home Medications ?Medication ?Instructions ?Recorded ?Confirmed ?Last Taken ?Type Saccharomyces boulardii 250 mg 250 mg PO BID 09/05/24 09/05/24 Unknown History capsule (Daily Probiotic (S. boulardii)) aloe vera PO 09/05/24 09/05/24 Unknown History cholecalciferol (vitamin D3) 25 25 mcg PO DAILY 09/05/24 09/05/24 Unknown History mcg (1,000 unit) capsule Exam Height,Weight and Vital Signs: Height 5 ft 5 in Weight 82.1 kg Assessment and Plan Assessment Anesthesia Assessment: Chart Reviewed Documented by User: Lin Layne MD 03/22/25 08:24 [facility] Past Medical History Medical History Overweight (BMI 25.0-29.9) Personal history of nicotine dependence Pancreatic cyst Colitis Asthma Renal calculi GERD (gastroesophageal reflux disease) Allergic rhinitis Angiomyolipoma Peroneal neuropathy Hypercholesterolemia Family History Family History Father Myocardial infarction Mother No problems noted. Sister Heart problem Brother ALS (amyotrophic lateral sclerosis) Maternal Grandmother Ovarian cancer Paternal Grandfather Colon cancer CVD (cerebrovascular disease) Maternal Aunt Colon cancer Paternal Aunt Cervical cancer Family history of problems with anesthesia: No Surgical History Surgical History History of endometrial ablation History of colonoscopy History of loop electrical excision procedure (LEEP) History of shoulder surgery History of Problems with Anesthesia: No Social History Social History Housing: House Are you a primary childcare provider to a significant other at home: No Do you presently have visiting nurse or other home services: No Alcohol intake: current Alcohol intake frequency: holidays/special occasions only Comment: 0nce -2x a year 1-2 drinks Patient Tobacco Use Status: Former Tobacco user Tobacco use type: Cigarette Years Smoked: (former smoker - onset 13yo, 1/2-1ppd x 43yrs, 30pyh, quit in 2016) e-Cigarette/Vaping Use: Never Used Second Hand Smoke Exposure: No Use of substances other than those prescribed or required for medical reasons: No Have you been hit, kicked, punched, or otherwise hurt by someone within the past year? If so, by whom?: No Are you DNR?: No Advance Directives: No Advance Directives Information Provided: Yes Advance Directives on File: No Patient : No Current occupational status: retired Cognitive needs: No Hearing needs: No Vision needs: Yes Meds Allergies Allergy/AdvReac Type Severity Reaction Status Date / Time Penicillins (PENICILLINS) Allergy Severe SEVERE Verified 09/05/24 08:57 VOMITING latex (LATEX) Allergy Intermediate RASH Verified 09/05/24 08:57 oseltamivir (From TAMIFLU) Allergy Intermediate VOMITING Verified 09/05/24 08:57 dextromethorphan (Theraflu AdvReac Unknown nausea and Verified 09/05/24 08:57 Day-Night Cold,Cough) vomiting diphenhydramine (Theraflu AdvReac Unknown nausea and Verified 09/05/24 08:57 Day-Night Cold,Cough) vomiting phenylephrine (Theraflu AdvReac Unknown nausea and Verified 09/05/24 08:57 Day-Night Cold,Cough) vomiting Home Medications ?Medication ?Instructions ?Recorded ?Confirmed ?Last Taken ?Type Saccharomyces boulardii 250 mg 250 mg PO BID 09/05/24 09/05/24 Unknown History capsule (Daily Probiotic (S. boulardii)) aloe vera PO 09/05/24 09/05/24 Unknown History cholecalciferol (vitamin D3) 25 25 mcg PO DAILY 09/05/24 09/05/24 Unknown History mcg (1,000 unit) capsule Exam Airway Mallampati Class: II TM Dist: >3cm Neck ROM: Full Heart: rrr Lungs: cta Assessment and Plan Assessment Anesthesia Assessment: Anesthesia Plan Discussed Final Anesthetic Review Family History of Problems with Anesthesia: No History of Problems with Anesthesia: No NPO: Yes ASA Class: II Final Preanesthetic Review: No Changes in Pt Med Stat, Meds/Allgs Chart Reviewed, Consent Obtained/Reviewed and Anes Risks/Benef Reviewed Patient Risk: Low Procedure Risk: Low Anesthetic Plan Anesthetic Plan: MAC: Disposition: Standard PACU
[2025-03-22 07:30] VITALS: BMI 28.5
[2025-03-22 07:58] VITALS: BP 149/82; PULSE 67; RESP 18; TEMP 36.4; O2SAT 97
[2025-03-22 10:00] VITALS: BP 141/78; PULSE 66; RESP 18; TEMP 36.1; O2SAT 99
--- NOTE | 2025-03-22 10:03 | PM.OP ---
Brief Operative Note Date of Service: 03/22/25 Pre-op diagnosis: GERD, Screening Post-op diagnosis: other (Hiatal hernia, Colon polyps) Procedure: EGD with bx, Colonoscopy to the cecum with hot snare polypectomy x 2 in TC, and bx/removal of AC polyp Surgeon: Mehul Crockett MD Anesthesia: MAC Was an Special Weapons And Tactics Officer used for this Procedure?: No Estimated blood loss (mL): 2.0 Pathology: other (A. EG Junction at 35cm B. Ascending colon polyp C. Transverse colon polyps) Condition: stable Disposition: PACU
[2025-03-22 10:15] VITALS: BP 150/82; PULSE 64; RESP 18; TEMP 36.3; O2SAT 98
--- NOTE | 2025-03-22 11:04 | OP_ITS ---
DATE OF SERVICE: 03/22/2025 SURGEON: Mehul Crockett MD INDICATIONS: The patient presents for evaluation of gastroesophageal reflux, family history of colon cancer, colorectal cancer screening. Full consent has been obtained from her for this, including risks of bleeding and perforation. PREOPERATIVE DIAGNOSIS: POSTOPERATIVE DIAGNOSIS: PROCEDURE PERFORMED: Esophagogastroduodenoscopy with biopsies, and colonoscopy to the cecum with biopsy and removal of polyp, and hot snare polypectomy x2. ESTIMATED BLOOD LOSS: COMPLICATIONS: ANESTHESIA: Monitored anesthesia care. ASSISTANTS: SPECIMENS: PREOPERATIVE DIAGNOSES: Gastroesophageal reflux, colorectal cancer screening, family history of colon cancer. POSTOPERATIVE DIAGNOSES: Gastroesophageal reflux, colorectal cancer screening, family history of colon cancer, hiatal hernia, colon polyps, melanosis coli, diverticulosis, and internal hemorrhoids. DESCRIPTION OF PROCEDURE: The patient was placed in the left lateral decubitus position. The Olympus video gastroscope was passed in the posterior oropharynx and upper esophagus under direct vision. The scope was passed slowly into the distal esophagus. The gastroesophageal junction appeared at 35 cm. There was some slight irregularity consistent with reflux. There was some erythema but no erosions, esophagitis, nor any gross evidence of Guevara esophagus. There was a small to moderate-sized hiatal hernia. The scope was advanced to the pylorus, and the duodenum was cannulated to the descending portion. The duodenum including the bulb appeared normal without mass or ulceration. The scope was withdrawn back to the stomach. The gastric antrum and body appeared normal with good peristalsis. The scope was retroflexed visualizing the proximal stomach carefully, which appeared normal, without any sign of mass or ulceration. There were multiple 2 to 3 mm hyperplastic appearing gastric polyps in the proximal stomach. The scope was straightened and withdrawn back to the esophagus. Biopsies were obtained at the EG junction at 35 cm. Proximal to this, the esophageal mucosa appeared normal. The scope was withdrawn from the patient. She was turned around for the colonoscopy. The digital rectal exam revealed no abnormalities other than some external hemorrhoids. The Olympus video pediatric colonoscope was entered into the rectum and advanced easily to the cecum. Once in the cecum, I did identify cecal pouch with appendiceal orifice, and a normal-appearing ileocecal valve. This area appeared normal other than melanosis coli. The entire cecum and ileocecal valve were well visualized. The scope was then slowly withdrawn assessing all mucosal surfaces carefully. Preparation was excellent. The melanosis coli throughout the colon did make visualization of polyps somewhat difficult. However, in the ascending colon was an approximately 5 mm, what appeared to be an adenomatous polyp, which was biopsied and completely removed with a cold biopsy forceps. In the transverse colon were 2 flat polyps between 1 and 1.5 cm in diameter. These were both raised. They appeared to be grossly adenomatous in the midst of the melanosis coli. Therefore, each polyp was removed by hot snare polypectomy and recovered by suction. Both polypectomy sites appeared clean, without any sign of residual polyp nor bleeding. I did not visualize any other polyps, colitis, nor angiodysplasia. There was a mild amount of sigmoid diverticulosis. In the rectum scope was retroflexed visualizing internal hemorrhoids, but no other pathology. Aside from the rectal mucosa showing melanosis coli, there were no other abnormalities. The scope was straightened and withdrawn from the patient. She tolerated the procedure well and was returned to the recovery area in stable condition. IMPRESSION: 1. Colon polyps. 2. Melanosis coli. 3. Diverticulosis. 4. Internal hemorrhoids. 5. Hiatal hernia, gastroesophageal reflux. PLAN: The results of the biopsies will be checked. She has been advised to continue her daily omeprazole for reflux. I do not think she would need any more upper endoscopies given the findings on today's exam. If the polyps in the colon show tubular adenomas, I would recommend a followup colonoscopy in 3 years given the family history. If all the polyps happen to be hyperplastic, then I would recommend a followup coloscopy in 5 years in regard to the family history. She was advised not to use any aspirin and NSAIDs for 1 week. She would otherwise see me on a p.r.n. basis. MD SMITHA Valerio/RUTH / [phone]
== END 2025-03-22 10:32 | disposition home or self-care (01) ==
PROVIDERS: PCP Internal Medicine; Visit Provider Internal Medicine
PROC: (CPT 45385; principal; 2025-03-22 08:30)
DX: Z12.11 Encounter for screening for malignant neoplasm of colon (principal); D12.2 Benign neoplasm of ascending colon; D12.3 Benign neoplasm of transverse colon; K57.30 Diverticulosis of large intestine without perforation or abscess without bleeding; K63.89 Other specified diseases of intestine; K64.8 Other hemorrhoids; K64.4 Residual hemorrhoidal skin tags; K59.00 Constipation, unspecified; K21.9 Gastro-esophageal reflux disease without esophagitis; K44.9 Diaphragmatic hernia without obstruction or gangrene; J45.909 Unspecified asthma, uncomplicated; N20.0 Calculus of kidney; Z79.899 Other long term (current) drug therapy; Z98.890 Other specified postprocedural states; Z87.891 Personal history of nicotine dependence
CPT/HCPCS: 45385; 45380; 43239; 88305; 88313; 88342; J1100; J2003; J2704; J3010

== ENCOUNTER 2025-08-31 11:14 | Outpatient (REF) | payer MEDICARE, SELFPAY ==
--- OUTSIDE RECORDS SUMMARY | 2025-03-22 03:30 | XMS_ITS ---
Author Organization [facility] Address [address] [place] [address] Care Team Providers Care Panel Laminator Name Role Phone Paxton Lucio MD Primary Care Provider Anitha Rasheed Unavailable [phone] REASON FOR VISIT screening,fam hx colon ca Encounters Encounter Location Date Provider Diagnosis [facility] [place] Out[place] [address] [place] [phone] 03/22/2025 Anitha Crockett Plan Of Treatment No Information Progress Notes * FRAN POWELLDOB:1959 (65 yo F)Acc No.[id number]:03/22/2025 EGD and COL/MAC Patient: FRAN LANDEROS Provider: Lori Crockett MD :1960 A ge:65 Y S ex:Female Date:03/22/2025 Address:[address] [place], [place] [phone] Pcp:Paxton Lucio MD Subjective: * Chief Complaints: * S creening,fam hx colon ca Billing Information: * Procedure Codes: * The named appointment provid er may or may not be the originator of this progress note, and it is not deemed complete until electronically signed by the appointment provider. Sign off status: Pending * Provider: Lori Crockett MD Date: 0 03/22/2025 Generated for Printi ng/Faxing/eTransmitting on: 1 11/01/2024 02:45 PM EST
[2025-08-31 11:24] LABS: MANUAL DIFF FLAG NO
[2025-08-31 11:37] LABS: Hematocrit 45.0 % (37.0-47.0); Hemoglobin 14.6 g/dl (12.0-16.0); Imm Gran Abs Auto 0.03 X10*3/uL (0.00-0.03); Imm Gran Pct Auto 0.5 % (0.0-0.4); Lymphocytes Absolute Auto 1.5 X10*3/uL (1.2-4.9); Mean Corpuscular HGB Conc 32.4 g/dl (31.0-35.0); Mean Corpuscular Hemoglobin 28.6 pg (27.0-33.0); Mean Corpuscular Volume 88.1 fL (80.0-98.0); NRBC Abs Auto 0.000 X10*3/uL (0.0-0.012); NRBC Pct Auto 0.0 /100WBC (0.0-0.2); Platelet Count 192 X10*3/uL (160-400); Red Blood Count 5.11 X10*6/uL (4.20-5.50); White Blood Count 6.3 X10*3/uL (4.8-10.8)
[2025-08-31 13:54] LABS: Alanine Aminotransferase 22 U/L (0-31); Albumin Level 4.5 g/dL (3.5-5.0); Alkaline Phosphatase 87 U/L (39-117); Anion Gap 12 (12-20); Aspartate Amino Transferase 24 U/L (5-31); Blood Urea Nitrogen 15 mg/dL (9-16); Calcium 9.3 mg/dL (8.4-10.2); Carbon Dioxide 25 mmol/L (22-29); Chloride 106 mmol/L (96-108); Cholesterol 212 mg/dL (<200); Estimated Glomerular Filt Rate > 60; HDL Cholesterol 43 mg/dL (>40); Potassium 4.4 mmol/L (3.3-5.1); Sodium 139 mmol/L (135-145); Total Protein 7.1 g/dL (6.5-8.0); Triglycerides 125 mg/dL (<150)
[2025-08-31 14:06] LABS: Folate 4.3 ng/mL (> or = 4.0); Vitamin B12 528 pg/mL (200-900)
[2025-08-31 14:16] LABS: Free T4 (Free Thyroxine) 0.99 ng/dL (0.71-1.85); Thyroid Stimulating Hormone 2.18 uIU/mL (0.32-4.0)
--- OUTSIDE RECORDS SUMMARY | 2025-08-31 14:46 | XMS_ITS | Patient Health Record ---
Author Organization [facility] Address [address] [place] [address] Care Team Providers Care Rehabilitation Teacher Name Role Phone Paxton Lucio MD Primary Care Provider Anitha Rasheed Unavailable [phone] Allergies Allergen (clinical drug ingredient) Drug/Non Drug Allergy documented on EMR Reaction Allergy Type Onset Date Status Latex latex gloves (uncoded) Unknown Allergy Active penicillin G Penicillin G Sodium Unknown Drug Allergy Active Theraflu Cold & Cough Unknown Drug Allergy Active Results Component Value Reference Range Notes Pathology Reviewed date:03/26/2025 11:55:10 PM Interpretation: Performing Lab:[facility], [address] [place] [id number] Notes/Report: Reason For Referral No Information Medications Medication SIG (Take, Route, Frequency, Duration) Notes Start Date End Date Status Omeprazole 20 MG Capsule Delayed Release TAKE 1 CAPSULE BY MOUTH EVERY DAY Oral; Duration: 90 Days Unknown Tylenol 325 MG Tablet 1 tablet as needed Orally every 4 hrs Unknown Vitamin D 1000 UNIT Tablet 1 tablet Oral ly Once a day; Duration: 30 day(s) Unknown Aloe Vera Juice - Liquid as directed Orally Unknown Probiotic 1-250 BILLION-MG Capsule as directed Orally Unknown Immunizations Vaccine Route Administration Date Status Comme nts Influenza Unknown 06/14/2018 Administered Influenza Unknown 05/31/2024 Administered Social History Tobacco Use: Social History Observation Description Date Details (start date - stop date) Former Smoker NA - NA Social History Drugs/Alcohol: Social Info Question Answer Notes Alcohol Screen Did you have a drink containing alcohol in the past year? No Points 0 Interpretation Negative Tobacco Use: Social Info Question Answer Notes Tobacco Use/Smoking Patient is a former smoker When did you stop smoking? december 20, 2017 How long has it been since you last smoked? 6-12 months Additional Details Category Social Info Options Details Miscellaneous: Marital status: Occupation: [employer]/retired Section Notes: Nonsmoker since 12/2017; no s ig alcohol Nonsmoker since 12/2017; no s ig alcohol Problems Problem Type SNOMED Code ICD Code Onset Dates Problem Status W/U Status Risk Notes Problem Screening for malignant neoplasm of colon (717555372) Encounter for screening for malignant neoplasm of colon (Z12.11) Active confirmed Problem Family History of Cancer of Colon (Situation) (609419117) Family history of colon cancer (Z80.0) Active confirmed Problem Hemorrhage of rectum and anus (752318625) Rectal bleed (K62.5) Active confirmed Problem Constipation (94267691) Constipation, unspecified constipation type (K59.00) Active confirmed Problem Gastroesophageal reflux disease (882593836) GERD (gastroesophage al reflux disease) (K21.9) Active confirmed Vital Signs Temperature 97.8 degrees Fahrenheit 12/28/2024 Blood pressure diastolic 01 mm Hg 12/28/2024 Height 65 in 12/28/2024 Blood pressure systolic 001 mm Hg 12/28/2024 Weight 181.2 lbs 12/28/2024 BMI 30.15 kg/m2 12/28/2024 Procedures Procedure Date Ordered Date Performed Result Body Sit e UPPER GI ENDOSCOPY 12/28/2024 N/A COLONOSCOPY 12/28/2024 N/A Encounters Encounter Location Date Provider Diagnosis [facility] [address] [place] [phone] 03/22/2025 Anitha Crockett [facility] [address] [place] [phone] 12/28/2024 Anitha Bon Family history of colon cancer Z80.0 ; GERD (gastroesophageal reflux disease) K21.9 ; Encounter for screening for malignant neoplasm of colon Z12.11 and Constipation, unspecified constipation type K59.00 [facility] [address] [place] [phone] 12/08/2024 Anitha Crockett [facility] [address] [place] [phone] 12/28/2024 Anitha Crockett [facility] [address] [place] [phone] 03/14/20[facility] [address] [place] [phone] 03/20/2025 Anitha Crockett [facility] [address] [place] [phone] 03/26/2025 Anitha Crockett Assessments Encounter Date Diagnosis (ICD Code) Assessment Notes Treatment Notes Treatment Clinical Notes Section Notes 12/28/2024 Family history of colon cancer (ICD-10 - Z80.0) Overall, Fran appears quite well. Given her significant family history of multiple relatives with colorectal cancer, albeit no first-degree relatives, I did recommend a follow-up colonoscopy for further screening purposes given her last exam being in 2018. We did review the rationale for this in regard to colon cancer prevention. I have also recommended an upper endoscopy on the same day given her longstanding history of reflux for which she is now using a PPI on a regular basis. We did review the importance of this in regard to ruling out Guevara's esophagus and/or significant esophagitis. Full consent has been obtained from her for this, including risks of bleeding and perforation. The procedures will be done with monitored anesthesia care. Fran was comfortable with this plan. Thank you again for allowing me to participate in Fran's care. I shall continue to keep you advised of her progress. 12/28/2024 GERD (gastroesophagea l reflux disease) (ICD-10 - K21.9) Overall, Fran appears quite well. Given her significant family history of multiple relatives with colorectal cancer, albeit no first-degree relatives, I did recommend a follow-up colonoscopy for further screening purposes given her last exam being in 2018. We did review the rationale for this in regard to colon cancer prevention. I have also recommended an upper endoscopy on the same day given her longstanding history of reflux for which she is now using a PPI on a regular basis. We did review the importance of this in regard to ruling out Guevara's esophagus and/or significant esophagitis. Full consent has been obtained from her for this, including risks of bleeding and perforation. The procedures will be done with monitored anesthesia care. Fran was comfortable with this plan. Thank you again for allowing me to participate in Fran's care. I shall continue to keep you advised of her progress. 12/28/2024 Encounter for screening for malignant neoplasm of colon (ICD-10 - Z12.11) Overall, Fran appears quite well. Given her significant family history of multiple relatives with colorectal cancer, albeit no first-degree relatives, I did recommend a follow-up colonoscopy for further screening purposes given her last exam being in 2019. We did review the rationale for this in regard to colon cancer prevention. I have also recommended an upper endoscopy on the same day given her longstanding history of reflux for which she is now using a PPI on a regular basis. We did review the importance of this in regard to ruling out Guevara's esophagus and/or significant esophagitis. Full consent has been obtained from her for this, including risks of bleeding and perforation. The procedures will be done with monitored anesthesia care. Fran was comfortable with this plan. Thank you again for allowing me to participate in Fran's care. I shall continue to keep you advised of her progress. 12/28/2024 Constipation, unspecified constipation type (ICD-10 - K59.00) Overall, Fran appears quite well. Given her significant family history of multiple relatives with colorectal cancer, albeit no first-degree relatives, I did recommend a follow-up colonoscopy for further screening purposes given her last exam being in 2019. We did review the rationale for this in regard to colon cancer prevention. I have also recommended an upper endoscopy on the same day given her longstanding history of reflux for which she is now using a PPI on a regular basis. We did review the importance of this in regard to ruling out Guevara's esophagus and/or significant esophagitis. Full consent has been obtained from her for this, including risks of bleeding and perforation. The procedures will be done with monitored anesthesia care. Fran was comfortable with this plan. Thank you again for allowing me to participate in Fran's care. I shall continue to keep you advised of her progress. Plan Of Treatment Pending Test Test Name Order Date UPPER GI ENDOSCOPY 12/28/2024 COLONOSCOPY 12/28/2024 Future Test Test Name Order Date COLONOSCOPY 11/30/2018 Insurance Providers Payer Name Payer Address Payer Phone Subscriber Number Group Number Insured Name Patient Relationship to Insured Coverage Start Date Coverage End Date MEDICARE OF [place] [address] TINA GUTIERREZ [id number] FRAN POWELL Self - patient is the insured 4 [employer] ATT[employer] CLAIMS [address] [place] [address] [phone] [id number] FRAN POWELL Self - patient is the insured Medical (General) History Medical History History ICD Code Kidney stones Denies IN,DM,CVA,renal disease Asthma - mild intermittent--inhaler prn Colonoscopy in 05/2010- - vinnie anosis coli, hyperplastic polyp, and internal hemorrhoids GERD Negative screening colonoscopy in 2018 Surgical History Surgery Date(Month/Year) Novasure Uterine ablation-
== END 2025-08-31 11:15 | disposition home or self-care (01) ==
LOC: HO.LAB 11:14
PROVIDERS: PCP Internal Medicine; Visit Provider Internal Medicine
DX: E78.00 Pure hypercholesterolemia, unspecified (principal)
CPT/HCPCS: 36415; 80053; 80061; 82306; 82607; 82746; 84439; 84443; 85025

== ENCOUNTER 2025-09-11 08:56 | Outpatient (AMB) | payer MEDICARE, SELFPAY ==
--- OUTSIDE RECORDS SUMMARY | 2025-03-22 03:30 | XMS_ITS ---
Author Organization [facility] Address [address] [place] [address] Care Team Providers Care Studio Operations Manager Name Role Phone Paxton Lucio MD Primary Care Provider Anitha Rasheed Unavailable [phone] REASON FOR VISIT screening,fam hx colon ca Encounters Encounter Location Date Provider Diagnosis [facility] [address] [place] [phone] 03/22/2025 Anitha Crockett Plan Of Treatment No Information Progress Notes * FRAN POWELLDOB:1959 (65 yo F)Acc No.[id number]:03/22/2025 EGD and COL/MAC Patient: FRAN LANDEROS Provider: Lori Crockett MD :1960 A ge:65 Y S ex:Female Date:03/22/2025 Address:[address] [place], [place] [phone] Pcp:Paxton Lucio MD Subjective: * Chief Complaints: * S creening,fam hx colon ca Billing Information: * Procedure Codes: * The named appointment provid er may or may not be the originator of this progress note, and it is not deemed complete until electronically signed by the appointment provider. Sign off status: Pending * Provider: Lori Crockett MD Date: 0 03/22/2025 Generated for Janei ng/Faarmandog/eTransmitting on: 1 09:10 AM EST
[2025-09-11 09:02] VITALS: BP 132/80; PULSE 78; O2SAT 97; BMI 30.4
--- NOTE | 2025-09-11 09:06 | A.OFFVIS_ITS ---
Intake Vital Signs 09/11/25 09:02 Height 5 ft 5 in Weight 183 lb BMI 30.4 BP 132/80 Blood Pressure Location Lt brachial Position Sitting Pulse 78 Pulse Source Pulse Oximeter Pulse Oximetry (%) 97 Oxygen Delivery Method Room Air Intake Visit Reasons: Annual Exam Allergies Penicillins (PENICILLINS) Allergy (Severe, Verified 09/11/25 09:03) SEVERE VOMITING latex (LATEX) Allergy (Intermediate, Verified 09/11/25 09:03) RASH oseltamivir (From TAMIFLU) Allergy (Intermediate, Verified 09/11/25 09:03) VOMITING dextromethorphan (Theraflu Day-Night Cold,Cough) Adverse Reaction (Unknown, Verified 09/11/25 09:03) nausea and vomiting diphenhydramine (Theraflu Day-Night Cold,Cough) Adverse Reaction (Unknown, Verified 09/11/25 09:03) nausea and vomiting phenylephrine (Theraflu Day-Night Cold,Cough) Adverse Reaction (Unknown, Verified 09/11/25 09:03) nausea and vomiting Medication List - Last Reconciled 09/11/25 by Paxton Lucio MD albuterol sulfate 90 mcg/actuation (Ventolin HFA) 2 puffs inhalation Q6H PRN [aloe vera PO .QD] betamethasone dipropionate 0.05% 1 appl topical BID 14 days cholecalciferol (vitamin D3) 25 mcg PO DAILY omeprazole 20 mg PO DAILY Saccharomyces boulardii (Daily Probiotic (S. boulardii)) 250 mg PO BID HPI Annual Exam HPI Details [facility], [place] [facility], mom this year and patient passed out one time - stressed and never did. HPI Comments History of Present Illness Details History of Present Illness The patient is a 65-year-old female presenting for an annual physical exam. Her medical history is significant for hypercholesterolemia, GERD, and asthma. She has a history of smoking, having quit in 2016. In terms of health maintenance, her last colonoscopy in March 2025 revealed a tubular adenoma, and she was advised to follow up in 3 years. Her last bone density scan in September 2024 showed osteopenia. She is enrolled in a lung cancer screening program, and a CT scan in November 2024 showed no suspicious lesions. She is due for a mammogram. The patient follows with [facility] for lichen planus, which has been treated with Benadryl, Claritin/Zyrtec, and a hydrochlorothiazide cream. She also follows with [facility] for her gastrointestinal issues. Recent hip x-rays in September showed moderate degenerative osteoarthritis of the right hip. Lab work from August 2025 was largely normal, including blood count, electrolytes, renal function, blood sugar, and liver function, but revealed an elevated LDL of 144 mg/dL. Her B12, vitamin D, folic acid, and thyroid levels were within normal limits. She reports an episode of syncope this year, which occurred the day after her mother and was attributed to stress and poor oral intake. She also had COVID-19 around [place], with symptoms of vomiting and diarrhea that lasted for a few weeks. Her current medications include omeprazole for reflux, an albuterol inhaler as needed for asthma, which she has not used recently, aloe vera pills, and a probiotic. She has known allergies to penicillin, Tamiflu, and an ingredient in Theraflu. Health Maintenance - Last physical exam was in August. - Bone density scan in September 2024 show ed osteopenia. - Colonoscopy in March 2025 showed a tubu lar adenoma; advised to repeat in 3 years. - The patient is due for a mammogram. - The patient is in a lung cancer screen ing program due to a history of smoking; her last CT scan in November 2024 was negative. - Last eye exam was in September with Dr. Montelongo, with no issues noted in the back of the eye and no cataracts. - Vaccinations are up to date, including shingles, tetanus, RSV, and pneumonia. - Recent lab work from August 31 showe d an elevated LDL of 144 mg/dL. - Discussion on diet for cholesterol man agement, emphasizing avoidance of fried foods, fast foods, and certain animal products. - Discussion on the importance of regula r physical activity and finding alternatives for exercise during different seasons. - Discussion about completing healthcare proxy forms was initiated, and forms were provided. Social History - Tobacco Use: The patient quit smoking in 2015. - Alcohol Use: The patient reports drink ing alcohol infrequently, perhaps twice a year, consuming one or two drinks per occasion. - Diet: The patient acknowledges her t has been less healthy since her mother's passing. - Exercise: The patient tries to walk bu t activity level is weather-dependent; she finds it easier to be active in the winter than in the summer heat. 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 - Living Situation: The patient lives wi th her . Results - Labs (August 2025): Normal blood cou nt, electrolytes, renal function, blood sugar, and liver function. - LDL cholesterol was 144 mg/dL. - Vitamin B12, vitamin D, folic acid, an d thyroid function were all within normal limits. - Bone Density (September 2024): Showed os teopenia. - Colonoscopy (March 2025): Revealed a tu bular adenoma. - Lung CT Scan (November 2024): No suspicio us lesions found as part of the lung cancer screening program. - Right Hip X-ray (September): Showed mode rate degenerative osteoarthritis. [facility] Medical History (Updated 09/11/25 @ 09:24 by Paxton Lucio MD) Colon cancer screening Overweight (BMI 25.0-29.9) Personal history of nicotine dependence Pancreatic cyst Colitis Asthma Renal calculi GERD (gastroesophageal reflux disease) Allergic rhinitis Angiomyolipoma Peroneal neuropathy Hypercholesterolemia Surgical History History of endometrial ablation History of colonoscopy History of loop electrical excision procedure (LEEP) History of shoulder surgery Family History Father Myocardial infarction Mother No problems noted. Sister Heart problem Brother ALS (amyotrophic lateral sclerosis) Maternal Grandmother Ovarian cancer Paternal Grandfather Colon cancer CVD (cerebrovascular disease) Maternal Aunt Colon cancer Paternal Aunt Cervical cancer Social History Housing: House Are you a primary field care coordinator to a significant other at home: No Do you presently have visiting nurse or other home services: No Alcohol intake: current Alcohol intake frequency: holidays/special occasions only Comment: 0nce -2x a year 1-2 drinks Patient Tobacco Use Status: Former Tobacco user Tobacco use type: Cigarette Years Smoked: (former smoker - onset 13yo, 1/2-1ppd x 43yrs, 30pyh, quit in 2015) e-Cigarette/Vaping Use: Never Used Second Hand Smoke Exposure: No Current occupational status: retired Cognitive needs: No Hearing needs: No Vision needs: Yes Questionnaire Medicare Wellness Checkup What [age] 65-69 What gender do you identify with?: female During the past 4 weeks, how much have you been bothered by emotional problems such as feeling anxious, depressed, irritable, sad or downhearted, and blue?: not at all During the past 4 weeks, has your physical & emotional health limited your social activities with family, friends, neighbors, or groups?: not at all During the past 4 weeks, how much bodily pain have you generally had?: mild pain During the past 4 weeks, was someone available to help you if you needed & wanted help?: no, not at all During the past 4 weeks, what was the hardest physical activity you could do for at least 2 minutes?: very heavy Can you get to places out of walking distance without help? (For eg., can you travel alone on buses, taxis or drive your car?): Yes Can you go shopping for groceries or clothes without someone's help?: Yes Can you prepare your own meals?: Yes Can you do your housework without help?: Yes Because of any health problems, do you need the help of another person with your personal care needs such as eating, bathing, dressing or getting around the house?: No Can you handle your own money without help?: Yes During the past 4 weeks, how would you rate your health in general?: very good During the past 4 weeks how have things been going for you?: pretty well Are you having difficulties driving your car?: no Do you always fasten your seat belt when you are in a car?: yes, usually During past 4 weeks, have you been bothered by the following: never: Sexual problems?, Trouble eating well?, Teeth or denture problems? and Problems using the telephone? and seldom: Falling or dizzy when standing up and Tiredness or fatigue? Have you fallen 2 or more times in the past year?: No Are you afraid of falling?: No Are you a smoker?: no During the past 4 weeks, how many drinks of wine, beer, or other alcoholic beverages did you have?: no alcohol at all Do you exercise for about 20 minutes 3 or more times a week?: yes, most of the time Have you been given information to help with the following?: yes: Keeping track of your medications? and no: Hazards in your house that might hurt you? How often do you have trouble taking medicines the way you have been told to t grace them?: I always take medicine as prescribed How confident are you that you can control & manage most of your health problems?: very confident What is your race?: White PHQ-9 Over the last 2 weeks, how often have you been bothered by any of the following problems? 1. Little interest or pleasure in doing things: not at all 2. Feeling down, depressed, or hopeless: not at all 3. Trouble falling or staying asleep, or sleeping too much: not at all 4. Feeling tired or having little energy: not at all 5. Poor appetite or overeating: not at all 6. Feeling bad about yourself - or that you are a failure or have let yourself or your family down: not at all 7. Trouble concentrating on things, such as reading the newspaper or watching television: not at all 8. Moving or speaking so slowly that other people could have noticed. Or the opposite - being so fidgety or restless that you have been moving around a lot more than usual: not at all 9. Thoughts that you would be better off or of hurting yourself in some way: not at all Total score: 0 Depression Screening Interpretation: Positive Depression Screening Done: Yes Source: Developed by Drs. Mehul Yen, Jaqueline Collins, Gilles Bowles and colleagues, with an educational twan from [email or web address]. Review of Systems Narrative Review of Systems - CONSTITUTIONAL: Denies fevers. - NEUROLOGICAL: Reports occasional headaches. - HEENT: Reports some hearing difficulty but denies it is severe enough to warrant testing. - EYES: Last eye exam was in September, with no cataracts or issues in the back of the eye noted. - ENT: Reports nasal congestion and a dry mouth at night, causing mouth breathing. - RESPIRATORY: Denies shortness of breath, including on exertion or when waking up. - CARDIOVASCULAR: Denies chest pain, heaviness, or discomfort. - GASTROINTESTINAL: Reports occasional heartburn despite taking omeprazole, which she states is triggered by bending over. - Bowel movements are regular; she denies constipation or diarrhea. - Denies problems with swallowing. - GENITOURINARY: Denies problems with urination but reports nocturia due to drinking fluids at night. - MUSCULOSKELETAL: Reports generalized arthritis, particularly in her back, for which she occasionally takes Tylenol. - INTEGUMENTARY: Reports recurrent itchiness on her back and chest, for which she sees a fourth mate. Const Denies poor appetite and Denies weakness Eyes Denies no additional complaints ENT Reports Normal hearing present, Denies dizziness, Denies nasal congestion, Denies tinnitus and Denies sore throat Card Denies chest pain, Denies syncope, Denies rapid heart rate and Denies dyspnea Resp Denies cough and Denies dyspnea GI Denies change in stool character, Reports constipation, Denies diarrhea, Denies nausea and Denies vomiting Denies urinary frequency, Denies difficulty voiding and Denies dysuria Neuro Reports Normal hearing present, Denies confusion, Denies dizziness, Denies syncope and Denies weakness Psych Denies confusion Physical Exam Exam Exam: Physical Exam General: Cooperative, healthy appearing, comfortable, no acute distress and well developed Orientation: Patient oriented x3 Limitations: No limitations Head: Normal to inspection Ears: Hearing slightly impaired, but not bad enough to require testing Nose: Normal external nose present, but patient reports nasal congestion and dryness, using nasal spray as needed Face and sinus: Normal facial exam Eyes: Appearance normal, both eyes and all related structures Neck: Normal visual inspection and Yes full ROM Respiratory: Normal respiratory effort and able to speak in complete sentences. Clear to auscultation bilaterally Cardiovascular: Regular rate and rhythm. Normal S1 and S2 GI: Normal to inspection. Soft to palpation and nontender Skin: No rashes or lesions noted, but patient reports itchiness on the back and chest, treated with cream and injections Neuro: Patient oriented x3 Extremities: Normal to inspection, but patient reports moderate degenerative arthritis in the right hip and back Vital Signs: Last Vital Signs Pulse 78 09/11/25 09:02 BP 132/80 09/11/25 09:02 Pulse Ox 97 09/11/25 09:02 Oxygen Delivery Method Room Air 09/11/25 09:02 BMI result Body Mass Index 30.4 Const General: No confusion Orientation/consciousness: No confusion HEENT Head: Yes normocephalic Ears: external ears normal and TM's normal bilaterally Face and sinus: Yes normal facial exam Mouth: moist mucous membranes Throat: Yes tonsils normal Eyes Conjunctivae: conjunctivae normal Pupils: Equal, round and reactive pupils present and Pupil accommodation reflex normal Direct Ophthalmoscopy: normal light reflex Neck Neck: No lymphadenopathy Thyroid: Thyroid normal Chest Chest palpation & inspection: normal inspection of the chest Resp Effort & Inspection: normal respiratory effort and no audible wheezes Auscultation: clear to auscultation bilaterally, no crackles, no wheezes and lung sounds not diminished Cardio Rate: regular rate Rhythm: regular rhythm Peripheral pulses: radial pulses present and dorsalis pedis present GI Palpation (GI): no masses Auscultation: normal bowel sounds and normoactive bowel sounds Rectal Exam - Female: deferred Skin General skin exam: no rashes or lesions noted Rashes: no rashes Neuro General: No confusion Cranial nerves: Yes Equal, round and reactive pupils present and Yes Normal hearing present Cognition (Neuro): normal cognition Gait exam (Neuro): Normal gait present Motor exam (neuro): 5/5 motor strength present throughout Deep tendon reflexes (DTR's): Right brachioradialis reflex intensity grade: 2+, Left brachioradialis reflex intensity grade: 2+, Right patellar reflex intensity grade: 2+ and Left patellar reflex intensity grade: 2+ Extrem General: No edema Assessment & Plan Assessment & Plan (1) Hypercholesterolemia: Code(s): E78.00 - Pure hypercholesterolemia, unspecified Plan: Avoid fried foods, chicken skin, eggs, butter margarine, pastries and meat. Be it pork or beef they have a lot of cholesterol LDL goal of less than 130 and triglyceride of less than 150 (2) Osteopenia: Comment: September 2024 Code(s): M85.80 - Other specified disorders of bone density and structure, unspecified site Plan: Patient is up-to-date with bone density September 2024 (3) GERD (gastroesophageal reflux disease): Code(s): K21.9 - Gastro-esophageal reflux disease without esophagitis Qualifiers: Esophagitis presence: without esophagitis Qualified Code(s): K21.9 - Gastro-esophageal reflux disease without esophagitis Plan: Avoid the foods that causes that usually spicy foods, tomato products, juices, coffee, soda and foods that your sensitive to. After eating do not lie down, allow 3-4 hours before in lie down. And keep the head of bed above 30 degrees to avoid the acid from going up. On omeprazole (4) Tubular adenoma of colon: Comment: March 2025 3 years Code(s): D12.6 - Benign neoplasm of colon, unspecified Plan: Tubular adenoma of the colon patient was advised to repeat colonoscopy in 3 years (5) Asthma: Code(s): J45.909 - Unspecified asthma, uncomplicated Qualifiers: Asthma complication type: uncomplicated Asthma persistence: intermittent Asthma severity: mild Qualified Code(s): J45.20 - Mild intermittent asthma, uncomplicated Plan: Continuing with albuterol inhaler as needed (6) Personal history of nicotine dependence: Comment: (former smoker - onset 13yo, 1/2-1ppd x 43yrs, 30pyh, quit in 2016) November 2024 CT Code(s): Z87.891 - Personal history of nicotine dependence Plan: Patient is up-to-date with recent CAT scan of the lung lung cancer screening program (7) Osteoarthritis of right hip: Code(s): M16.11 - Unilateral primary osteoarthritis, right hip Plan: Keep active discussed about pain management (8) Annual wellness visit: Code(s): Z00.00 - Encounter for general adult medical examination without abnormal findings Plan: Patient is advised to eat healthy, keep well hydrated, keep active and have adequate sleep. Plan Plan Patient was informed and verbally consented to the use of an ambient scribe for clinic note documentation during this visit. 1. Annual Health Maintenance The patient is due for her annual mammogram and plans to schedule it. She will continue with the lung cancer screening program, with her next CT scan scheduled for November 2024. Her vaccinations are up to date. Lifestyle modifications were discussed, including maintaining physical activity year-round and adjusting fluid intake at night to improve sleep quality. Healthcare proxy forms were provided to the patient for completion. Follow-up will be for her next annual physical exam. 2. Hypercholesterolemia The patient's LDL cholesterol is elevated at 144 mg/dL, with a goal of less than 130 mg/dL. The plan includes dietary counseling to reduce intake of fried foods, fast foods, and high-fat animal products. Encouraged increased physical activity, such as walking. Cholesterol will be checked on a yearly basis. 3. Osteopenia The patient's bone density scan showed osteopenia. She was advised to ensure adequate calcium intake through diet and to continue her vitamin D supplement. The importance of staying active was emphasized for bone health. A discussion was had regarding bone-strengthening medications, including potential side effects like osteonecrosis of the jaw and atypical fractures. She was instructed to inform her dentist if she considers starting these medications. 4. History Of Tubular Adenoma Of Colon The patient has a history of a tubular adenoma found on her last colonoscopy in March 2025. She is aware of the recommendation to have a repeat colonoscopy in 3 years and will follow up with her lumber marker at [facility]. 5. Gastroesophageal Reflux Disease The patient continues to experience occasional heartburn despite taking prescribed omeprazole, particularly when bending over. Discussed avoiding trigger foods like oily, spicy, and tomato-based products, especially in the evening. A refill for her omeprazole prescription will be managed as needed, as she has refills available. 6. Nasal Congestion The patient reports nighttime nasal congestion and dry mouth, leading her to breathe through her mouth. A prescription for a nasal spray was sent to her pharmacy. She was instructed on the proper administration technique and advised against using Vicks VapoRub inside her nose. 7. Asthma The patient has an albuterol inhaler but has not needed to use it recently and denies any shortness of breath. She will continue to use the albuterol inhaler as needed. Discussion Notes I conducted a comprehensive annual wellness visit with the patient. I reviewed her recent lab work, noting the elevated LDL cholesterol of 144 mg/dL. We discussed the importance of diet and exercise for cholesterol management. I discussed her diagnosis of osteopenia, explaining the bone remodeling process and the increased bone breakdown that occurs after menopause. We reviewed the benefits and risks of bisphosphonate therapy, including the rare side effects of atypical fractures and osteonecrosis of the jaw, emphasizing the need to inform her dentist if she considers starting such medication. I reinforced the foundational importance of calcium, vitamin D, and physical activity for bone health. I confirmed her understanding of her health maintenance schedule, including the need for a follow-up colonoscopy in 3 years for her tubular adenoma, her upcoming lung cancer screening CT in November, and that she is due for a mammogram. I addressed her complaint of nocturnal nasal congestion by prescribing a nasal spray and providing instructions for its use. We also discussed management of her GERD symptoms and osteoarthritis pain. Finally, I provided her with healthcare proxy forms and explained their purpose. I reminded her of general safety precautions during the ongoing flu season. She will follow up for her next annual physical. Patient Instructions - Continue to focus on a healthy diet to help lower your cholesterol. - Try to stay active and walk regularly. - I have sent a prescription for a nasal spray to your pharmacy to help with nighttime nasal congestion. - Remember to schedule your mammogram, as you are due for one. - Your next lung cancer screening CT scan is due in November 2024. - Follow up with your lumber marker in 3 years for a repeat colonoscopy. - Continue taking your omeprazole for acid reflux. - Use your albuterol inhaler as needed for asthma symptoms. - If you decide to take medication for your bone health, please let your dentist know. - Please review and complete the healthcare proxy forms I gave you. - Be careful during flu season; vaccinations help but do not provide complete immunity. Orders: Orders Comprehensive Met. Panel 1 Year K21.9 - Gastro-esophageal reflux disease without esophagitis Lipid Panel 1 Year E78.00 - Pure hypercholesterolemia, unspecified, K21.9 - Gastro-esophageal reflux disease without esophagitis Vitamin B12 and Folate 1 Year K21.9 - Gastro-esophageal reflux disease without esophagitis Vitamin D 25-OH Total 1 Year K21.9 - Gastro-esophageal reflux disease without esophagitis Complete Blood Count Auto Diff 1 Year K21.9 - Gastro-esophageal reflux disease without esophagitis Free T4 (Free Thyroxine) 1 Year K21.9 - Gastro-esophageal reflux disease without esophagitis Thyroid Stimulating Hormone 1 Year K21.9 - Gastro-esophageal reflux disease without esophagitis Medications: New fluticasone propionate 50 mcg/actuation (Flonase Allergy Relief) administer into each nostril 2 sprays intranasal DAILY 16 grams 4RF Quality Reporting (2019) Depression/Bipolar (159/160/161/177) PHQ-9: Total score: 0 Coding Level of Care Code Medicare Subsequent (G0439) Diagnoses Hypercholesterolemia E78.00 Osteopenia M85.80 Gastroesophageal reflux disease without esophagitis K21.9 Esophagitis presence: without esophagitis Tubular adenoma of colon D12.6 Mild intermittent asthma without complication J45.20 Asthma complication type: uncomplicated Asthma persistence: intermittent Asthma severity: mild Personal history of nicotine dependence Z87.891 Osteoarthritis of right hip M16.11 Annual wellness visit Z00.00
--- OUTSIDE RECORDS SUMMARY | 2025-09-11 09:11 | XMS_ITS | Patient Health Record ---
Author Organization [facility] Address [address] [place] [address] Care Team Providers Care Wilton Weaver Name Role Phone Paxton Lucio MD Primary Care Provider Anitha Rasheed Unavailable [phone] Allergies Allergen (clinical drug ingredient) Drug/Non Drug Allergy documented on EMR Reaction Allergy Type Onset Date Status Latex latex gloves (uncoded) Unknown Allergy Active penicillin G Penicillin G Sodium Unknown Drug Allergy Active Theraflu Cold & Cough Unknown Drug Allergy Active Results Component Value Reference Range Notes Pathology Reviewed date:03/26/2025 11:55:10 PM Interpretation: Performing Lab:[facility], [address] [place] [id number] Notes/Report: Reason For Referral No Information Medications [...] Options Details Miscellaneous: Marital status: Occupation: [employer]/retired Section Notes: Nonsmoker since 12/2017; no s ig alcohol Nonsmoker since 12/2017; no s ig alcohol Problems Problem Type SNOMED Code ICD Code Onset Dates Problem Status W/U Status Risk Notes Problem Screening for malignant neoplasm of colon (035861312) Encounter for screening for malignant neoplasm of colon (Z12.11) Active confirmed Problem Family History of Cancer of Colon (Situation) (474191420) Family history of colon cancer (Z80.0) Active confirmed Problem Hemorrhage of rectum and anus (644898802) Rectal bleed (K62.5) Active confirmed Problem Constipation (12066174) Constipation, unspecified constipation type (K59.00) Active confirmed Problem Gastroesophageal reflux disease (915147049) GERD (gastroesophage al reflux disease) (K21.9) Active [...] N/A Encounters Encounter Location Date Provider Diagnosis [facility] [address] [place] [id number] 03/22/2025 Anitha Crockett [facility] [address] [place] [phone] 12/28/2024 Anitha Bon Family history of colon cancer Z80.0 ; GERD (gastroesophageal reflux disease) K21.9 ; Encounter for screening for malignant neoplasm of colon Z12.11 and Constipation, unspecified constipation type K59.00 [facility] [address] [place] [phone] 12/08/2024 Anitha Crockett [facility] [address] [place] [phone] 12/28/2024 Anitha Crockett [facility] [address] [place] [id number] 03/[facility] [address] [place] [phone] 03/20/2025 Anitha Crockett [facility] [address] [place] [phone] 03/26/2025 Anitha Crockett Assessments Encounter Date Diagnosis [...] OF [place] [address] TINA GUTIERREZ [id number] FRAN POWELL Self - patient is the insured 4 [employer] CLAIMS [address] [place] [address] [phone] [id number] FRAN POWELL Self - patient is the insured Medical (General) History Medical History History ICD Code Kidney stones Denies WA,DM,CVA,renal disease Asthma - mild intermittent--inhaler prn Colonoscopy in 05/2010- - vinnie anosis coli, hyperplastic polyp, and internal hemorrhoids GERD Negative screening colonoscopy in 2018 Surgical History Surgery Date(Month/Year) Novasure Uterine ablation-
== END 2025-09-11 09:45 | disposition home or self-care (01) ==
LOC: HO.HMCH 08:57
PROVIDERS: PCP Internal Medicine; Visit Provider Internal Medicine
DX: Z00.00 Encounter for general adult medical examination without abnormal findings (principal); E78.00 Pure hypercholesterolemia, unspecified; M85.89 Other specified disorders of bone density and structure, multiple sites; M16.11 Unilateral primary osteoarthritis, right hip; K21.9 Gastro-esophageal reflux disease without esophagitis; D12.6 Benign neoplasm of colon, unspecified; J45.20 Mild intermittent asthma, uncomplicated; Z87.891 Personal history of nicotine dependence

== ENCOUNTER 2025-09-11 09:49 | Outpatient (REF) | payer MEDICARE, SELFPAY | END 2025-09-11 09:50 | LOC: HO.MAMMO 09:49 | PROVIDERS: Visit Provider Internal Medicine | DX: Z12.31 Encounter for screening mammogram for malignant neoplasm of breast (principal) | CPT/HCPCS: 77063; 77067 ==

== ENCOUNTER → 2025-09-11 10:00 | Outpatient (BNV) | payer MEDICARE, SELFPAY | PROVIDERS: Visit Provider Internal Medicine | DX: Z12.31 Encounter for screening mammogram for malignant neoplasm of breast (principal) | CPT/HCPCS: 77063; 77067 ==